=== PATIENT | female | born 1945 | race Caucasian/White ===

== ENCOUNTER 2018-07-14 07:11 | Inpatient (IN) | payer MEDICARE, OTHER ==
[2018-07-14] VITALS (7 sets, daily range): BP systolic 95–138; BP diastolic 55–99
[~2018-07-14] VITALS: Ht 160 cm; Wt 77.6 kg
--- NOTE | 2018-07-14 07:20 | NUR ---
BIBRA 39 FORM HOME, SOB SINCE LAST NIGHT, 2 AKLBUTEROL HHN GIVEN IN ROUTE, 02 @ 70% WHEN PICKED UP BY PARAMEDICS. PATIENT IS VERBALLY RESPONSIVE, AND ABLE TO MAKE NEEDS KNOWN. 02 @80% WHEN CHECKED AND NON-REBREATHER MASK GIVEN, 02 SAT WENT UP TO 92%, DR. JOHN AT BEDSIDE FOR EVAL. RT ON SITE AND PUT PATIENT ON BIPAP, SETTINGS: 15/5, RATE 14, FIO2 40%, 02 SAT 100%. IV ACCESS INITIATED. KEPT COMFORTABLE, WILL CONTINUE TO MONITOR ACCORDINGLY.
[2018-07-14] MEDS ORDERED: FUROSEMIDE 40 MG/4 ML VIAL IV ONE (07:30)
[2018-07-14] MEDS ORDERED: FUROSEMIDE 40 MG/4 ML VIAL ONE (07:30)
[2018-07-14] MEDS ORDERED: ALBUTEROL FS 2.5 MG/3 ML VIAL.NEB NEB ONE (07:30)
--- NOTE | 2018-07-14 07:32 | NUR ---
REPORT GIVEN TO SAGE FOR ALLYSON.
[2018-07-14] MEDS ORDERED: ALBUTEROL FS 2.5 MG/3 ML VIAL.NEB ONE (07:39)
[2018-07-14 08:00] LABS: BASOPHILS # (AUTO) 0.1 /CMM (0.0-0.2); BASOPHILS % (AUTO) 0.8 % (0.0-2.0); EOSINOPHILS % (AUTO) 0.9 % (0.0-6.0); HEMATOCRIT 42 % (33-45); HEMOGLOBIN 13.5 g/dL (11.5-14.8); LYMPHOCYTES # (AUTO) 1.5 /CMM (0.8-4.8); MEAN CORPUSCULAR HGB CONC 32 g/dl (31.0-36.0); MEAN CORPUSCULAR VOLUME 88 fL (82-100); MONOCYTES # (AUTO) 0.4 /CMM (0.1-1.30); MONOCYTES % (AUTO) 4.5 % (2.0-12.0); NEUTROPHILS # (AUTO) 7.4 /CMM (1.8-8.9); NEUTROPHILS % (AUTO) 77.8 % (43.0-81.0); PLATELET COUNT (AUTO) 171 /CMM (150-450); RED BLOOD CELL COUNT(AUTO) 4.81 MIL/uL (4.0-5.2); WHITE BLOOD COUNT (AUTO) 9.5 K/uL (4.3-11.0)
[2018-07-14] MEDS ORDERED: NITROGLYCERIN PACKET 1 GM PACKET TD ONE (08:00)
[2018-07-14] MEDS ORDERED: NITROGLYCERIN PACKET 1 GM PACKET ONE (08:02)
[2018-07-14 08:13] LABS: CALCIUM, SERUM 8.9 mg/dL (8.5-10.1); CARBON DIOXIDE 32 mmol/L (21-32); CHLORIDE 102 mmol/L (98-107); CREATININE 1.2 mg/dL (0.6-1.3); GLUCOSE 102 mg/dL (74-106); POTASSIUM 4.2 mmol/L (3.5-5.1); SODIUM SERUM 141 mmol/L (136-145); UREA NITROGEN, BLOOD 23 mg/dL (7-18)
[2018-07-14 08:27] LABS: ALANINE AMINOTRANSFERASE 16 U/L (12-78); ALBUMIN 3.2 g/dL (3.4-5.0); ALKALINE PHOSPHATASE 130 U/L (46-116); ASPARTATE AMINOTRANSFERASE 16 U/L (15-37); B-TYPE NATRIURETIC PEPTIDE 1083 PG/ML (0-125); BILIRUBIN,DIRECT 0.1 mg/dL (0.0-0.2); BILIRUBIN,TOTAL 0.3 mg/dL (0.2-1.0); TOTAL PROTEIN, SERUM 7.9 g/dL (6.4-8.2)
--- NOTE | 2018-07-14 08:47 | NUR ---
PAGED EPIC FOR ADMISSION.
--- NOTE | 2018-07-14 10:22 | NUR ---
CALLED STEVO HEALY FOR ALLYSON PT GOING TO ICU ROOM 256
[2018-07-14] MEDS ORDERED: MAGNESIUM HYDROXIDE 30 ML UDC PO PRN (10:30)
[2018-07-14] MEDS ORDERED: ZOLPIDEM TARTRATE 5 MG TABLET PO PRN (10:30)
[2018-07-14] MEDS ORDERED: MAG HYDROX/AL HYDROX/SIMETH 30 ML UDC PO PRN (10:30)
[2018-07-14] MEDS ORDERED: Z GUARD REMEDY 2 OZ OINT TP PRN (10:30)
[2018-07-14] MEDS ORDERED: ONDANSETRON HCL/PF 4 MG/2 ML VIAL IVP PRN (10:30)
[2018-07-14] MEDS ORDERED: HYDROCODONE/APAP 5/325MG 1 EACH TABLET PO PRN (10:30)
[2018-07-14] MEDS ORDERED: ACETAMINOPHEN 325 MG TABLET PO PRN (10:30)
--- NOTE | 2018-07-14 11:13 | NUR ---
TRANSPORTED PATEINT VIA ACLS PROTOCOL WITH RN, IN NO APPARENT DISTRESS NOTED. GOING TO ROOM 256.
--- NOTE | 2018-07-14 11:15 | NUR ---
RN NOTES RECEIVED PT FROM ER PT ON FACE MASK 10L WITH SATURATION OF 98%, AWARE 02 TO BE TITRATED FOR SPO2 >90%. PT PLACED ON FACE MASK AT 8LPM TO TITRATE ORDERED. PT AWAKE ALERT AND VERBALLY RESPONSIVE ABLE TO MAKE NEEDS KNOWN. DENIES ANY PAIN OR DISCOMFORT AT THIS TIME. IV ACCESS TO LAC AND RFA PATENT AND INTACT NO REDNESS OR INFILTRATION NOTED. ORIENTED TO ROOM AND UNIT. CALL LIGHT WITHIN EASY REACH WILL CONTINUE TO MONITOR
[2018-07-14] MEDS: ALBUTEROL FS 2.5 MG/0.5 ML VIAL.NEB NEB SCH ×3 (11:42→20:08)
[2018-07-14] MEDS: IPRATROPIUM NEB FS 0.5 MG/2.5 ML AMPUL.NEB NEB SCH ×3 (11:42→20:08)
[2018-07-14] MEDS: FUROSEMIDE 40 MG/4 ML VIAL IV SCH ×2 (12:59→17:31)
[2018-07-14] MEDS: methylPREDNISolone SOD SUCC 40 MG/ML VIAL IV SCH ×2 (12:59→17:31)
[2018-07-14] MEDS: ENOXAPARIN SODIUM 40 MG/0.4 ML DISP.SYRIN SQ SCH (13:27)
--- NOTE | 2018-07-14 13:30 | NUR ---
RN NOTES SEEN AND EVALUATED BY PULMONOLOGY OKAY TO HAVE ABG TOMORROW AM NO FURTHER ORDERS TITRATE O2 VIA NC TO KEEP SPO2>90% WILL CONTINUE TO MONITOR
--- NOTE | 2018-07-14 15:00 | NUR ---
RN NOTES SEEN BY CARDIOLOGY WILL CONTINUE TO MONITOR NO FURTHER ORDERS
--- NOTE | 2018-07-14 20:14 | NUR ---
RN NOTES PT ON NC 3LPM WITH SATURATION OF >90%, MD AWARE 02 TO BE TITRATED FOR SPO2 >90%. . PT AWAKE ALERT AND VERBALLY RESPONSIVE ABLE TO MAKE NEEDS KNOWN. DENIES ANY PAIN OR DISCOMFORT AT THIS TIME. IV ACCESS TO LAC AND RFA PATENT AND INTACT NO REDNESS OR INFILTRATION NOTED. ORIENTED TO ROOM AND UNIT. CALL LIGHT WITHIN EASY REACH ENDORSED TO NEXT SHIFT FOR CONTINUITY OF CARE
--- NOTE | 2018-07-14 20:24 | NUR ---
ICU/RN RECEIVED PT AWAKE ALERT &OX3.MONITOR NSR W/ BBB.DENIES PAIN OR DISCOMFORT.SHORT OF BREATH WITH EXERTION.ON 3LNC W/ SAT OF 95%.OOB W/ RN IN ATTENDANCE TO VOID..
[2018-07-15] VITALS (30 sets, daily range): BP systolic 89–132; BP diastolic 40–77
--- NOTE | 2018-07-15 | NUR ---
ICU/RN ASSISTED OOB TO COMMODE.SOB W/ MILD EXERTION.BACK TO BED W/OUT INCIDENT
[2018-07-15] MEDS: ALBUTEROL FS 2.5 MG/0.5 ML VIAL.NEB NEB SCH ×6 (00:24→20:17)
[2018-07-15] MEDS: IPRATROPIUM NEB FS 0.5 MG/2.5 ML AMPUL.NEB NEB SCH ×6 (00:24→20:17)
[2018-07-15 04:50] LABS: BASOPHILS % (AUTO) 0.1 % (0.0-2.0); HEMATOCRIT 40 % (33-45); HEMOGLOBIN 12.8 g/dL (11.5-14.8); LYMPHOCYTES # (AUTO) 0.5 /CMM (0.8-4.8); MEAN CORPUSCULAR HGB CONC 32 g/dl (31.0-36.0); MEAN CORPUSCULAR VOLUME 86 fL (82-100); MONOCYTES % (AUTO) 0.2 % (2.0-12.0); NEUTROPHILS # (AUTO) 6.1 /CMM (1.8-8.9); NEUTROPHILS % (AUTO) 92.7 % (43.0-81.0); PLATELET COUNT (AUTO) 199 /CMM (150-450); RED BLOOD CELL COUNT(AUTO) 4.65 MIL/uL (4.0-5.2); WHITE BLOOD COUNT (AUTO) 6.6 K/uL (4.3-11.0)
[2018-07-15 05:08] LABS: ALANINE AMINOTRANSFERASE 13 U/L (12-78); ALBUMIN 2.9 g/dL (3.4-5.0); ALKALINE PHOSPHATASE 117 U/L (46-116); ASPARTATE AMINOTRANSFERASE 10 U/L (15-37); BILIRUBIN,TOTAL 0.3 mg/dL (0.2-1.0); CALCIUM, SERUM 8.9 mg/dL (8.5-10.1); CARBON DIOXIDE 37 mmol/L (21-32); CHLORIDE 97 mmol/L (98-107); CREATININE 1.1 mg/dL (0.6-1.3); GLUCOSE 138 mg/dL (74-106); MAGNESIUM 1.9 mg/dL (1.8-2.4); PHOSPHORUS 4.8 mg/dL (2.5-4.9); POTASSIUM 3.7 mmol/L (3.5-5.1); SODIUM SERUM 139 mmol/L (136-145); TOTAL PROTEIN, SERUM 7.5 g/dL (6.4-8.2); UREA NITROGEN, BLOOD 26 mg/dL (7-18)
--- NOTE | 2018-07-15 06:00 | NUR ---
ICU/RN UP TO BEDSIDE COMMODE X3.REFUSED BATH.STILL SOB W/EXERTION.VITAL SIGNS STABLE.MONITOR SHOWS SINUS TACH.DENIES PAIN OR DISCOMFORT.
[2018-07-15 06:22] LABS: IRON, SERUM 26 ug/dl (50-175); TOTAL IRON BINDING CAPACITY 429 ug/dl (250-450)
[2018-07-15 06:33] LABS: CHOLESTEROL 133 mg/dL (<200); HDL CHOLESTEROL 83 mg/dL (40-60); LDL 52 mg/dL (0-99); THYROID STIMULATING HORMONE 0.803 uIU/mL (0.358-3.74); TRIGLYCERIDES 46 mg/dL (30-150)
--- NOTE | 2018-07-15 07:15 | NUR ---
RN INITIAL NOTES: Rec'd pt awake on bed, not in any distress, A/O x 4, denies pain/discomfort at this time. On NC at 3lpm, not SOB while on bed but reported to be SOB upon exertion. On telemonitor, SR. Has IV line access on L 2nd finger G20 & RFA G22 both SL, no s/sx of infection/infiltration noted. Pt uses the BSC, continent B/B. Provided comfort & safety measures. Bed kept low & in locked pos. Call light placed w/in reach. Will continue to monitor & attend pt needs.
--- NOTE | 2018-07-15 07:40 | NUR ---
Pt seen & examined by Dr. Campbell.
[2018-07-15] MEDS: methylPREDNISolone SOD SUCC 40 MG/ML VIAL IV SCH ×3 (08:24→16:51)
[2018-07-15] MEDS: ASPIRIN EC 81 MG TABLET.DR PO SCH (08:24)
[2018-07-15] MEDS: FUROSEMIDE 40 MG/4 ML VIAL IV SCH (08:24)
[2018-07-15] MEDS: ENOXAPARIN SODIUM 40 MG/0.4 ML DISP.SYRIN SQ SCH (08:25)
[2018-07-15 09:09] LABS: ABG BASE EXCESS 9.8 mmol/L; ABG OXYGEN SATURATION 91.1 % (92.0-98.5); ABG PCO2 55.3 mmHg (35.0-45.0); ABG PH 7.432 (7.350-7.450); ABG PO2 60.8 mmHg (75.0-100.0); AaDO2 131.7 mmHg; COHb 1.3 % (0.5-1.5); MetHb 0.3 % (0.0-1.5); O2Hb 89.6 % (94.0-97.0); SITE, ABG Right Radial; VENT MODE, BG Nasal Cannula
--- NOTE | 2018-07-15 09:30 | NUR ---
Pt seen & examined by Dr. Thomas. ABG reviewed by manfred CAMERON to transfer pt to [facility]. CN aware.
--- NOTE | 2018-07-15 11:45 | NUR ---
Dtr gave list of pt medication. Called med recon nurse & informed her about this & stated will come in the unit to check on this.
[2018-07-15] MEDS ORDERED: PREG100C PO (13:20)
[2018-07-15] MEDS ORDERED: IPRA3AMP23 IH (13:20)
[2018-07-15] MEDS ORDERED: DILT60TA35 PO (13:20)
[2018-07-15] MEDS ORDERED: ATOR20TA PO (13:20)
[2018-07-15] MEDS ORDERED: NITR0.4T48 SL (13:20)
[2018-07-15] MEDS ORDERED: ROPI4TAB6 PO (13:20)
[2018-07-15] MEDS ORDERED: FURO-144 PO (13:20)
[2018-07-15] MEDS ORDERED: LAMO100T PO (13:20)
[2018-07-15] MEDS ORDERED: CARV3.122 PO (13:20)
[2018-07-15] MEDS ORDERED: ALBU18HF2 IH (13:20)
[2018-07-15] MEDS ORDERED: FOLI1TAB16 PO (13:20)
[2018-07-15] MEDS ORDERED: ZIPR20CA2 PO (13:20)
[2018-07-15] MEDS ORDERED: CYAN10009 PO (13:20)
[2018-07-15] MEDS ORDERED: APIX2.5T PO (13:20)
--- NOTE | 2018-07-15 14:31 | NUR ---
HR went up to 160's BP 101/67. Pt resting on her bed, denies any chest pain, discomfort. She verbalized she is doing okay. On telemonitor showed ST w/ inverted T wave. Dr. Campbell made aware, awaiting response. Addendum: 07/15/18 at 1452 by MATILDE FAIR RN Addendum: Not Dr. Campbell's pt. Case was referred to Dr. Spence as well as ECG reading which showed Afib w/ RVR. Per , he will see pt.
[2018-07-15] MEDS ORDERED: ENOX40DI SQ (15:15)
[2018-07-15] MEDS ORDERED: MAGN400O6 PO (15:15)
[2018-07-15] MEDS ORDERED: ZOLP5TAB2 PO (15:15)
[2018-07-15] MEDS ORDERED: IPRA0.2S9 NEB (15:15)
[2018-07-15] MEDS ORDERED: ACET325T53 PO (15:15)
[2018-07-15] MEDS ORDERED: ALLA266C2 TP (15:15)
[2018-07-15] MEDS ORDERED: FURO10VI IV (15:15)
[2018-07-15] MEDS ORDERED: MAG30ORA PO (15:15)
[2018-07-15] MEDS ORDERED: ALBU2.5V13 NEB (15:15)
[2018-07-15] MEDS ORDERED: HYDR-3972 PO (15:15)
[2018-07-15] MEDS ORDERED: ONDA4VIA23 IVP (15:15)
[2018-07-15] MEDS ORDERED: ASPI-1152 PO (15:15)
[2018-07-15] MEDS ORDERED: methylPREDNISolone SOD SUCC IV (15:15)
--- NOTE | 2018-07-15 15:15 | NUR ---
Pt seen & examined by Dr. Spence w/ orders made & carried out. Addendum: 07/15/18 at 1835 by MATILDE FAIR RN Addendum: Dr. Spence made aware re: DCP. Per MD if pt will be transferred to [facility], [facility] yu
[2018-07-15] MEDS ORDERED: AMIODARONE 900 MG in IV D5W 482 ML IV PRN (15:30)
[2018-07-15] MEDS ORDERED: IV NS 0.9% 500 ML IV ONE (15:30)
[2018-07-15] MEDS ORDERED: AMIODARONE 150 MG in IV D5W 100 ML IV ONE (15:30)
--- NOTE | 2018-07-15 16:30 | NUR ---
Raiza CORNEJO informed about pt's home meds to review. Pt seen & examined by CLEMENTE Eastman, has an order to transfer pt to [facility] per insurance however pt had episode of Afib RVR, per FOOD AND BEVERAGE ASSISTANT MANAGER pt will stay at [facility] at this time until stable. This was explained to the pt at bedside. FOOD AND BEVERAGE ASSISTANT MANAGER also informed about pt home meds especially her pysch meds if okay to continue, per FOOD AND BEVERAGE ASSISTANT MANAGER she will review pt's med list.
[2018-07-15] MEDS: APIXABAN 2.5 MG TABLET PO SCH (16:51)
--- NOTE | 2018-07-15 18:53 | NUR ---
RN CLOSING NOTES: Pt resting comfortably on her bed, not in any distress. Tolerated NC at 3lpm despite of O2 sat 88%, verbalized she is doing okay. On telemonitor, now ST 103 bpm. IV line access kept patent & intact on LFA G20 SL, R hand G20 w/ Amio drip x 1 mg infusing well & RFA G22 SL, no s/sx of infection/infiltration noted. FC draining to BSB w/ adequate UOP. Pt kept well rested. Needs attended. Bed kept low & in locked pos. Call light placed w/in reach. Will endorse to PM RN for ALLYSON.
--- NOTE | 2018-07-15 19:00 | NUR ---
SHAPE BRICK MOLDER NOTES Received patient awake,alert,not in any distress with O2 via nasal cannula 4L/min.Denies any pain. HR still above 100's ,on Amiodarone drip due to episode of Afib with RVR earlier today ,Amio drip to be decrease to 0.5 mg/min @ 2200. Will closely monitor respiratory status and heart rate/rhythm.comfort care done,needs attended.
--- NOTE | 2018-07-15 22:00 | NUR ---
ANSWERING SERVICE AGENT NOTES AMIODARONE DRIP DECREASE TO 0.5 MG/MIN.PATIENT REMAINS STABLE,SINUS RHYTHM IN THE 90'S,BP STABLE.
[2018-07-16] VITALS (9 sets, daily range): BP systolic 109–148; BP diastolic 59–75
[2018-07-16] MEDS: IPRATROPIUM NEB FS 0.5 MG/2.5 ML AMPUL.NEB NEB SCH ×4 (00:18→11:20)
[2018-07-16] MEDS: ALBUTEROL FS 2.5 MG/0.5 ML VIAL.NEB NEB SCH ×3 (00:18→07:25)
--- NOTE | 2018-07-16 01:30 | NUR ---
THERAPEUTIC ACTIVITIES SERVICES WORKER NOTES PATIENT RESTLESS,UNCOMFORTABLE,HER RLS ACTING UP ,LEGS RESTLESS AND VERY SHAKY,STATES SHE REALLY NEEDS HER MEDICATION FOR RLS(REQUIP),PATIENT TAKING 4 MG Q NIGHT.MESSAGE SENT TO DR. MONET,ANSWERED BACK STATING ELO TO START PATIENT ON IT STARTING NOW.
[2018-07-16] MEDS ORDERED: ropiniROLE 0.5 MG TABLET ONE ×2 (01:39→01:48)
--- NOTE | 2018-07-16 06:00 | NUR ---
DIRECTOR OF ACADEMIC SUPPORT NOTES STABLE,STILL ON AMIODARONE DRIP, STILL SINUS RHYTHM.NOT IN ANT DISTRESS BUT WITH MILD ON AND OFF PANIC ATTACK ,CALMS DOWN WITH PSYCHOLOGICAL SUPPORT. 0700 REPORT GIVEN TO CRISTHIAN HEALY.
[2018-07-16] MEDS: ASPIRIN EC 81 MG TABLET.DR PO SCH (08:41)
[2018-07-16] MEDS: APIXABAN 2.5 MG TABLET PO SCH (08:41)
[2018-07-16] MEDS: methylPREDNISolone SOD SUCC 40 MG/ML VIAL IV SCH (08:41)
[2018-07-16 10:08] LABS: BASOPHILS % (AUTO) 0.1 % (0.0-2.0); HEMATOCRIT 40 % (33-45); HEMOGLOBIN 12.9 g/dL (11.5-14.8); LYMPHOCYTES % (AUTO) 7.8 % (20.0-44.0); MEAN CORPUSCULAR HGB CONC 32 g/dl (31.0-36.0); MEAN CORPUSCULAR VOLUME 85 fL (82-100); MONOCYTES # (AUTO) 0.5 /CMM (0.1-1.30); MONOCYTES % (AUTO) 4.1 % (2.0-12.0); NEUTROPHILS # (AUTO) 10.8 /CMM (1.8-8.9); PLATELET COUNT (AUTO) 229 /CMM (150-450); WHITE BLOOD COUNT (AUTO) 12.2 K/uL (4.3-11.0)
[2018-07-16 10:21] LABS: CARBON DIOXIDE 34 mmol/L (21-32); CHLORIDE 97 mmol/L (98-107); CREATININE 1.2 mg/dL (0.6-1.3); GLUCOSE 150 mg/dL (74-106); MAGNESIUM 1.9 mg/dL (1.8-2.4); PHOSPHORUS 3.8 mg/dL (2.5-4.9); POTASSIUM 3.3 mmol/L (3.5-5.1); SODIUM SERUM 139 mmol/L (136-145); UREA NITROGEN, BLOOD 34 mg/dL (7-18)
--- NOTE | 2018-07-16 10:40 | NUR ---
PB RN NOTES PT TRANSFERRED FROM ICU TO PB FLOOR ROOM 119-2. BELONGINGS TRANSFERRED WITH PT. PT WILL BE TRANSFERRING TO [facility] TODAY. WILL FOLLOW UP.
--- NOTE | 2018-07-16 10:40 | NUR ---
transferred to [facility] via bed/acls transport protocol; bedside handoof don with Joseluis RN; amiodarone drip endorsed as well
[2018-07-16] MEDS ORDERED: ALBUTEROL FS 2.5 MG/0.5 ML VIAL.NEB NEB SCH (13:30)
--- NOTE | 2018-07-16 15:13 | NUR ---
PB CLERICAL METHODS ANALYST NOTES PT TRANSFERRED TO [facility] PER INSURANCE REQUEST BY AMBULANCE CREW. PT LEAVING WITH REYES/L AND R IV SITES PATENT. ALL NEEDS ATTENDED TO.
[2018-07-16] MEDS ORDERED: AMIODARONE HCL 200 MG TABLET PO SCH (21:00)
[2018-07-16] MEDS ORDERED: ropiniROLE 0.5 MG TABLET PO SCH (22:00)
[2018-07-17] MEDS ORDERED: methylPREDNISolone SOD SUCC 40 MG/ML VIAL IV SCH (09:00)
== END 2018-07-16 15:30 | disposition short-term general hospital (02) | DRG 291 ==
LOC: ER 07:13 → ICU 10:12 → TELE1 07-16 10:37 → TELE-TD 07-16 12:14
PROVIDERS: ADMIT Internal Medicine; ATTEND Registered Nurse
DX: I11.0 Hypertensive heart disease with heart failure (principal); N17.0 Acute kidney failure with tubular necrosis; G93.41 Metabolic encephalopathy; J96.01 Acute respiratory failure with hypoxia; J96.02 Acute respiratory failure with hypercapnia; J44.1 Chronic obstructive pulmonary disease with (acute) exacerbation; E66.2 Morbid (severe) obesity with alveolar hypoventilation; I50.33 Acute on chronic diastolic (congestive) heart failure; I48.0 Paroxysmal atrial fibrillation; Z90.3 Acquired absence of stomach [part of]; Z95.1 Presence of aortocoronary bypass graft; Z96.651 Presence of right artificial knee joint; Z98.61 Coronary angioplasty status; I25.10 Atherosclerotic heart disease of native coronary artery without angina pectoris; I45.10 Unspecified right bundle-branch block; Z87.891 Personal history of nicotine dependence; F31.9 Bipolar disorder, unspecified; Z68.30 Body mass index [BMI] 30.0-30.9, adult
CPT/HCPCS: 36415; 36600; 71045-TC; 80048-TC; 80053-TC; 80061-TC; 80076-TC; 82803-TC; 83540-TC; 83605-TC; 83735-TC; 83880; 84100-TC; 84443-TC; 84484-TC; 85025-TC; 85730-TC; 87040-TC; 87081-TC; 93307-TC; 93970-TC; 94799-TC; G0378; J0282; J1650; J1940; J2920; J7040; J7060

== ENCOUNTER 2018-07-29 03:09 | Inpatient (IN) | payer MEDICARE, OTHER ==
[~2018-07-29] VITALS: Ht 162.6 cm; Wt 81.6 kg
[~2018-07-29 03:09] MED LIST: ACET325T53 PO; ALBU2.5V13 NEB; ALLA266C2 TP; ASPI-1152 PO; ENOX40DI SQ; FURO10VI IV; HYDR-3972 PO; IPRA0.2S9 NEB; MAG30ORA PO; MAGN400O6 PO; ONDA4VIA23 IVP; ZOLP5TAB2 PO; methylPREDNISolone SOD SUCC IV
--- NOTE | 2018-07-29 03:20 | NUR ---
[id number] FROM HOME, PER EMS ROOMATE FOUND PT "ACTING CHILD LIKE". A/OX 3 AND ABLE TO MAKE NEEDS KNOWN. PT PLACED ON MONITOR. VSS WNL. NO HEAD TRAUMA NOTED. BS 138. ALL SAFETY MEASURES IN PLACE. AWAITING MD LUTZ.
[2018-07-29] MEDS ORDERED: IV NS 0.9% 1,000 ML BAG IV ONE (03:30)
[2018-07-29] MEDS ORDERED: HALOPERIDOL LACTATE INJ 5 MG/ML VIAL IV ONE (03:30)
[2018-07-29] MEDS ORDERED: HALOPERIDOL LACTATE INJ 5 MG/ML VIAL ONE (04:10)
[2018-07-29 04:21] LABS: BASOPHILS % (AUTO) 0.4 % (0.0-2.0); EOSINOPHILS % (AUTO) 1.7 % (0.0-6.0); HEMATOCRIT 40 % (33-45); HEMOGLOBIN 12.8 g/dL (11.5-14.8); LYMPHOCYTES # (AUTO) 1.3 /CMM (0.8-4.8); LYMPHOCYTES % (AUTO) 18.4 % (20.0-44.0); MEAN CORPUSCULAR HGB CONC 32 g/dl (31.0-36.0); MEAN CORPUSCULAR VOLUME 87 fL (82-100); MONOCYTES # (AUTO) 0.4 /CMM (0.1-1.30); MONOCYTES % (AUTO) 6.5 % (2.0-12.0); PLATELET COUNT (AUTO) 151 /CMM (150-450); RED BLOOD CELL COUNT(AUTO) 4.53 MIL/uL (4.0-5.2); WHITE BLOOD COUNT (AUTO) 6.8 K/uL (4.3-11.0)
[2018-07-29 04:41] LABS: ACETAMINOPHEN 0 ug/ml (10-30); ALANINE AMINOTRANSFERASE 27 U/L (12-78); ALBUMIN 3.1 g/dL (3.4-5.0); ALCOHOL, BLOOD < 3 mg/dL (0-0); ALKALINE PHOSPHATASE 89 U/L (46-116); ASPARTATE AMINOTRANSFERASE 32 U/L (15-37); BILIRUBIN,DIRECT 0.1 mg/dL (0.0-0.2); BILIRUBIN,TOTAL 0.4 mg/dL (0.2-1.0); CALCIUM, SERUM 8.7 mg/dL (8.5-10.1); CARBON DIOXIDE 30 mmol/L (21-32); CHLORIDE 103 mmol/L (98-107); CREATININE 1.4 mg/dL (0.6-1.3); GLUCOSE 105 mg/dL (74-106); POTASSIUM 3.2 mmol/L (3.5-5.1); SALICYLATE 1.2 mg/dL (2.8-20.0); SODIUM SERUM 143 mmol/L (136-145); TOTAL PROTEIN, SERUM 6.8 g/dL (6.4-8.2); UREA NITROGEN, BLOOD 23 mg/dL (7-18)
[2018-07-29 05:13] LABS: THYROID STIMULATING HORMONE 1.311 uIU/mL (0.358-3.74)
[2018-07-29] MEDS: POTASSIUM CHLORIDE 20 MEQ TAB.PRT.SR PO ONE ×2 (05:52→06:29)
--- NOTE | 2018-07-29 06:20 | NUR ---
REPORT GIVEN TO RASHEL
[2018-07-29] MEDS ORDERED: POTASSIUM CHLORIDE 20 MEQ TAB.PRT.SR PO ONE (06:22)
--- NOTE | 2018-07-29 06:30 | NUR ---
GPS RN NOTES RECEIVED PATIENT FROM [facility]/ ER. ,VITAL SIGNS TAKEN AND RECORDED , NO ACUTE DISTRESS NOTED , PT. BEHAVIOR AGGRESSIVE WITH STAFF NOTED, ENDORSE TO ON COMING NURSE FOR COMPLETION OF ADMISSION AND FOR CONTINUITY OF CARE.
--- NOTE | 2018-07-29 06:46 | NUR ---
TRANSFERRED PT VIA WHEELCHAIR TO ROOM 214.
[2018-07-29 06:48] VITALS: BP 127/79
[2018-07-29] MEDS ORDERED: TEMAZEPAM 7.5 MG CAPSULE PO PRN (07:00)
[2018-07-29] MEDS ORDERED: LORAZEPAM 0.5 MG TABLET PO PRN (07:00)
[2018-07-29] MEDS ORDERED: MAG HYDROX/AL HYDROX/SIMETH 30 ML UDC PO PRN (07:00)
[2018-07-29] MEDS ORDERED: ACETAMINOPHEN 325 MG TABLET PO PRN (07:00)
[2018-07-29] MEDS ORDERED: MAGNESIUM HYDROXIDE 30 ML UDC PO PRN (07:00)
[2018-07-29 08:00] VITALS: BP 132/74
[2018-07-29] MEDS ORDERED: ZOLP5TAB2 PO (08:26)
[2018-07-29] MEDS ORDERED: IPRA3AMP23 IH (08:26)
[2018-07-29] MEDS ORDERED: ALLA266C2 TP (08:26)
[2018-07-29] MEDS ORDERED: METO25TA20 PO (08:26)
[2018-07-29] MEDS ORDERED: ACET-868 PO (08:29)
[2018-07-29] MEDS ORDERED: HYDR-4384 PO (08:29)
[2018-07-29] MEDS ORDERED: MAGN400O6 PO (08:29)
[2018-07-29] MEDS ORDERED: ASPI-1152 PO (08:29)
[2018-07-29] MEDS ORDERED: MAG30ORA PO (08:29)
[2018-07-29 08:55] LABS: CREATININE 1.1 mg/dL (0.6-1.3)
--- NOTE | 2018-07-29 10:00 | NUR ---
ADMISSION NOTE: PATIENT RECEIVED FROM CLINICAL COORDINATOR, ASLEEP BUT WAKES WITH STIMULI. PATIENT IS NOT COOPERATING BECAUSE SHE IS VERY TIRED. PATIENT RECEIVED HALDOL IN THE ER SO PATIENT IS VERY SLEEPY. PATIENT ADMITTED ON 5150 FOR GD. BROUGHT INTO THE ER BY ROOMMATE EVAN SHE WAS RAMBLING CONFUSED AND ACTING BIZARRE. PATIENTS BELONGINGS WERE DONE. PSYCHIATRIST NOTIFIED AND ORDER PUT IN. MORTGAGE PROCESSOR MADE AWARE AND MED RECON. SKIN ASSESSMENT AND PICTURES WERE REFUSED BY THE PATIENT. UNIT POLICIES AND PROCEDURES WILL BE EXPLAINED TO PATIENT WHEN SHE WAKES UP.
--- NOTE | 2018-07-29 11:00 | NUR ---
HERSONCO:EKG WAS ORDERED BY DR RAMIREZ.
--- NOTE | 2018-07-29 11:25 | NUR ---
SW called the pt's daughter, Crystal ([phone]), and received a busy dial tone which prevented the SW from leaving a message on her voicemail.
[2018-07-29] MEDS ORDERED: K PHOS NEUTRAL 250 MG TABLET PO ONE (13:00)
--- NOTE | 2018-07-29 13:01 | NUR ---
RN-CO: DR JAMES MARTÍNEZ SEEN AND EXAMINED THE PATIENT. REMINDED DR RAMIREZ TO RECONCILE HOME MEDS.
--- NOTE | 2018-07-29 14:10 | NUR ---
UR Note: Venus ([phone]), case manager specialist from [facility], called the SW and stated that she would like any available notes to be faxed to [phone]. SW stated that the pt is on her first day and at this current time the psychiatrist has not arrived and there are no notes present in the system. VICENTE asked if she could fax the clinical tomorrow morning and the case manager specialist stated that was fine.
[2018-07-29] MEDS ORDERED: Z GUARD REMEDY 2 OZ OINT TP PRN (15:00)
[2018-07-29] MEDS ORDERED: HYDROCODONE/APAP 5/325MG 1 EACH TABLET PO PRN (15:00)
--- NOTE | 2018-07-29 15:00 | NUR ---
Initial Discharge Plan: Pt currently resides with her roommates at a home located at [address] [place] [address]; ([phone]). Per pt, she would like to return home. SW will work with the pt and the MD regarding appropriate discharge planning. SW will form a safe and proper discharge.
[2018-07-29 16:01] VITALS: BP 128/68
[2018-07-29] MEDS ORDERED: METOPROLOL TARTRATE 25 MG TABLET PO SCH (17:00)
[2018-07-29] MEDS ORDERED: OLANZAPINE 5 MG/TAB.RAPDIS PO SCH (17:00)
[2018-07-29] MEDS: OLANZAPINE 5 MG/TAB.RAPDIS PO SCH ×2 (17:00→17:09)
--- NOTE | 2018-07-29 17:15 | NUR ---
RN NOTE: MED CONSENT TURNED IN LATE AFTER MED WAS DUE. PER NIKO IN THE PHARMACY, GIVE THE DOSE THAT WAS DUE AT 1530 OF OLANZAPINE AND THEN HOLD THE DOSE DUE AT 1700/
--- NOTE | 2018-07-29 19:11 | NUR ---
RN NOTE: PATIENT IS UNCOOPERATIVE WITH PICTURES AND URINE SAMPLE. ENDORSED TO ANALYTICAL RESEARCH PROGRAM MANAGER TO TRY TONIGHT.
--- NOTE | 2018-07-29 19:36 | NUR ---
GPS RN NOTES: PT.NOTED VERY ANXIOUS RESTLESS ,AGGRESSIVE, UNCOOPERTIVE ,YELLING ,NOT FOLLOWING ANY REDIRECTIONS ATIVAN 0.5 MG PO PRN GIVEN,WILL CONTINUE TO MONITOR.
--- NOTE | 2018-07-29 20:05 | NUR ---
GPS RN NOTES: ASSESS PATIENT TOGETHER WITH ANOTHER NURSE AND CHARGE NURSE , BILATERAL LOWER EXTRIMITES EDEMA ,REDNESS, WARM TO TOUCH . PT. C/O PAIN WHEN BEING TOUCH,AND NOTIFIED HYDROGEN BRAZE FURNACE OPERATOR DEBBIE BOOGIE ON MY FINDING , PER HER STATES I WILL COME TO SEE THE PATIENT ,AFTER SEEING THE PATIENT I WILL GIVE ORDER, WILL CONTINUE TO MONITOR.
[2018-07-29 20:15] VITALS: BP 108/53
[2018-07-29 20:58] LABS: APPEARANCE,URINE SL CLOUDY (CLEAR); BILIRUBIN,URINE NEGATIVE (NEGATIVE); BLOOD, URINE TRACE Ery/uL (NEGATIVE); COLOR,URINE YELLOW (YELLOW); KETONES,URINE NEGATIVE (NEGATIVE); LEUKOCYTE ESTERASE ,URINE 1+ (NEGATIVE); NITRITE, URINE NEGATIVE (NEGATIVE); PH,URINE 6.5 (5.0-8.0); PROTEIN,URINE NEGATIVE (NEGATIVE); UGLUCOSE NEGATIVE (NEGATIVE); UROBILINOGEN,URINE 0.2 EU/dL (0.2)
[2018-07-29 21:13] LABS: BACTERIA,URINE Few /HPF (None Seen); RBC,URINE 0-2 /HPF (0-2); SQUAMOUS EPITHELIAL CELL,UR Few /HPF (None Seen)
--- NOTE | 2018-07-29 21:45 | NUR ---
GPS RN NOTES: AT PT. TOLD NURSE THAT SHE PUT ON OXYGEN AT NIGHT WHEN SLEEPING NURSE ASSESSED HER O2 SAT GOT THE READING 89% -91% ON ROOM AIR ,PATIENT THEN STARTED O2 , RECHECKED READING 95% AND CHUYITA EDUCATION LIAISON CAME TO THE UNIT TO PHYSICAL ASSESSED THE PT. IN THE ROOM , NURSE ASSIGNED WENT WITH HER. SHE VEBALLY GAVE OREDRS FOR PT. TO BE DISCHARGED AND SENT TO MED SURG FLOOR , FOR FURTHER WORK UP. PT. MADE READY BELONGINGS MADE READY ,WILL GIVE REPORTS TO NURSE ASSIGNED.
[2018-07-29] MEDS ORDERED: LamoTRIgine 25 MG TABLET PO SCH (22:00)
[2018-07-29 23:25] VITALS: BP 123/78
--- NOTE | 2018-07-29 23:30 | NUR ---
GPS RN NOTES: REPORT GIVEN TO SHERRELL PT. DISCHARGE TO MED SURG ROOM # 325 IN STABLE CONDITION, NO ACUTE DISTRESS NOTED , PT. TRANSFER VIA WHEELCHAIR ACCOMPAINED WITH STAFF MEMBER, WILL ENDORSE TO MED SURG NURSER FOR CONTINUITY WITH CARE ,
--- NOTE | 2018-07-30 08:49 | NUR ---
SW called the pt's daughter, Crystal ([phone]), and received a busy dial tone which prevented the SW from leaving a message on her voicemail.
--- NOTE | 2018-07-30 08:53 | NUR ---
UR Note: VICENTE faxed a clinical to Venus ([phone]), top case assembler from [facility], to the fax number: [phone]. VICENTE stated on the cover sheet that the pt was discharged to the medical floor the same day of her admission.
[2018-07-30] MEDS ORDERED: ASPIRIN EC 81 MG TABLET.DR PO SCH (09:00)
--- NOTE | 2018-07-30 10:54 | NUR ---
Discharge Note: Pt was discharged from [facility] and was admitted to the Medical Floor of [facility] per Dr. Lockhart.
[2018-07-30] MEDS ORDERED: ATOR20TA PO (12:07)
[2018-07-30] MEDS ORDERED: DILT180C66 PO (12:07)
[2018-07-30] MEDS ORDERED: APIX5TAB PO (12:07)
[2018-07-30] MEDS ORDERED: ROPI1TAB2 PO (12:07)
[2018-07-30] MEDS ORDERED: CARV3.122 PO (12:07)
[2018-07-30] MEDS ORDERED: FURO-144 PO (12:07)
[2018-07-30] MEDS ORDERED: PREG100C PO (12:07)
[2018-07-30] MEDS ORDERED: NITR0.4T48 SL (12:07)
--- NOTE | 2018-07-30 15:00 | NUR ---
VICENTE called the pt's daughter, Erin ([phone]), when the accurate number was provided to the SW. She informed the pt's daughter that she had attempted to call a few times yesterday but had the wrong number. VICENTE informed her that the pt is now on the medical floor but if she returns to the geropsych unit, the SW will call her back to discuss discharge planning.
[2018-07-30] MEDS ORDERED: OLANZAPINE 5 MG/TAB.RAPDIS PO SCH (15:30)
[2018-07-30] MEDS ORDERED: LamoTRIgine 25 MG TABLET PO SCH (22:00)
== END 2018-07-29 23:24 | disposition short-term general hospital (02) | DRG 885 ==
LOC: ER 03:10 → GPS 05:10
PROVIDERS: ADMIT Psychiatry & Neurology Psychiatry; ATTEND Psychiatry & Neurology Psychiatry
DX: F31.2 Bipolar disorder, current episode manic severe with psychotic features (principal); N18.9 Chronic kidney disease, unspecified; N17.9 Acute kidney failure, unspecified; I13.0 Hypertensive heart and chronic kidney disease with heart failure and stage 1 through stage 4 chronic kidney disease, or unspecified chronic kidney disease; I50.32 Chronic diastolic (congestive) heart failure; F23 Brief psychotic disorder; J44.9 Chronic obstructive pulmonary disease, unspecified; E87.6 Hypokalemia; I25.10 Atherosclerotic heart disease of native coronary artery without angina pectoris; Z95.1 Presence of aortocoronary bypass graft; I25.2 Old myocardial infarction; E11.22 Type 2 diabetes mellitus with diabetic chronic kidney disease; Z79.84 Long term (current) use of oral hypoglycemic drugs
CPT/HCPCS: 36415; 80048-TC; 80076-TC; 80305; 81000-TC; 82565-TC; 84443-TC; 84484-TC; 85025-TC; 87081-TC; 87086-TC; G0480; J1630; J7030

== ENCOUNTER 2018-07-29 23:49 | Inpatient (IN) | payer MEDICARE, OTHER ==
[~2018-07-29] VITALS: Ht 160 cm; Wt 76.2 kg
[2018-07-29 23:30] VITALS: BP 109/66
--- NOTE | 2018-07-29 23:30 | NUR ---
RN MS ADMITTING/OPENING NOTES RECEIVED PATIENT FROM GPS, PATIENT IS NOW MS PATIENT, AWAKE ALERT AND ORIENTED X 1-2 NOTED WITH PERIODS OF FORGETFULNESS, ON 2 L VIA NC, NO SOB PRESENT, ON 5150 HOLD FOR GD,DTS,DTO, WITH SITTER AT BEDSIDE, ORIENTED TO STAFF AND CALL LIGHT. BELONGINGS LIST DONE, BODY ASSESSMENT DONE, PICTURES TAKEN PLACED IN CHART NOTED WITH BLE EDEMA AND REDNESS ADMITTED FOR CELLULITIS, MD AWARE OF ADMISSION, MRSA SWAB DONE, WILL CARRY OUT ORDERS PER MD. ALL NEEDS ATTENDED AT THIS TIME PATIENT REMAINS COMFORTABLE AT THIS TIME.
[~2018-07-29 23:49] MED LIST changes: +ACET-868 PO; +HYDR-4384 PO; +IPRA3AMP23 IH; +METO25TA20 PO
[2018-07-30] MEDS ORDERED: ONDANSETRON HCL/PF 4 MG/2 ML VIAL IVP PRN
[2018-07-30] MEDS ORDERED: VANCOMYCIN 1 GM in IV D5W 250ml IV ONE (02:00)
[2018-07-30] MEDS ORDERED: VANCOMYCIN 1 GM VIAL ONE (03:44)
[2018-07-30] MEDS: ACETAMINOPHEN 325 MG TABLET PO PRN ×2 (05:40→17:01)
--- NOTE | 2018-07-30 05:44 | NUR ---
RN MS NOTES PATIENT COMPLAINT OF PAIN TO LOWER LEGS STATES" ALOT OF PAIN" REQUESTING FOR TYLENOL PRN GIVEN ORDERED
--- NOTE | 2018-07-30 06:27 | NUR ---
RN MS CLOSING NOTES PATIENT IN BED AWAKE ALERT AND ORIENTED X 1-2 NOTED WITH PERIODS OF FORGETFULNESS, ON 2 L VIA NC, NO SOB PRESENT, ON 5150 HOLD FOR GD,DTS,DTO, WITH SITTER AT BEDSIDE, CALL LIGHT KEPT WITHIN REACH, ALL NEEDS ATTENDED AT THIS TIME PATIENT REMAINS COMFORTABLE, FLUIDS AND TOILETING OFFERED, NO FURTHER CHANGED THROUGHOUT NIGHT PATIENT SLEPT 4 HOURS. WILL CONTINUE TO MONITOR AND ENDORSE TO NEXT SHIFT.
[2018-07-30 06:54] LABS: BASOPHILS % (AUTO) 0.5 % (0.0-2.0); EOSINOPHILS % (AUTO) 1.8 % (0.0-6.0); HEMATOCRIT 36 % (33-45); HEMOGLOBIN 11.5 g/dL (11.5-14.8); LYMPHOCYTES # (AUTO) 1.8 /CMM (0.8-4.8); LYMPHOCYTES % (AUTO) 26.9 % (20.0-44.0); MEAN CORPUSCULAR HGB CONC 32 g/dl (31.0-36.0); MEAN CORPUSCULAR VOLUME 87 fL (82-100); MONOCYTES # (AUTO) 0.5 /CMM (0.1-1.30); MONOCYTES % (AUTO) 7.2 % (2.0-12.0); NEUTROPHILS # (AUTO) 4.2 /CMM (1.8-8.9); NEUTROPHILS % (AUTO) 63.6 % (43.0-81.0); PLATELET COUNT (AUTO) 137 /CMM (150-450); RED BLOOD CELL COUNT(AUTO) 4.09 MIL/uL (4.0-5.2); WHITE BLOOD COUNT (AUTO) 6.6 K/uL (4.3-11.0)
[2018-07-30 07:43] LABS: CALCIUM, SERUM 8.6 mg/dL (8.5-10.1); CARBON DIOXIDE 32 mmol/L (21-32); CHLORIDE 106 mmol/L (98-107); CREATININE 1.3 mg/dL (0.6-1.3); GLUCOSE 90 mg/dL (74-106); MAGNESIUM 1.8 mg/dL (1.8-2.4); POTASSIUM 3.6 mmol/L (3.5-5.1); SODIUM SERUM 143 mmol/L (136-145); UREA NITROGEN, BLOOD 20 mg/dL (7-18)
--- NOTE | 2018-07-30 07:53 | NUR ---
MS RN Opening Note Patient awake, sitting in chair. No acute distress, SOB or complaints of chest pain. Alert and oriented x 1-2, able to verbalize needs. Respirations even and unlabored on 2 L oxygen via nasal cannula. Peripheral IV access to the left forearm 20 gauge, intact, patent and saline locked. Skin warm and dry to touch. Fall and Safety precautions in place: bed in lowest and locked position, bed alarm on, side rails up x2, call light and personal possessions within reach. Oriented to safety measures and use of call light, verbalized understanding and demonstrated use. Previous GPS patient, [address] 1:1 sitter at bedside for safety. Safety checks every 15 minutes, patient denies SI/HI. Will continue to monitor and intervene as needed. Addendum: 07/30/18 at 1843 by SOLO IZAGUIRRE RN CORRECTION: Peripheral IV access to the left wrist 22 gauge, intact, patent and saline locked.
[2018-07-30 08:00] VITALS: BP 118/79
[2018-07-30] MEDS: HYDROCODONE/APAP 5/325MG 1 EACH TABLET PO PRN (08:23)
[2018-07-30] MEDS ORDERED: FEE PK DOSING 1 MIN EA MC ONE (08:53)
--- NOTE | 2018-07-30 08:57 | NUR ---
WOUND CARE CONSULT: PT PRESENTS WITH MULTIPLE SURGICAL SCARS, BRUISES AND REDNESS TO LOWER LEGS, PRESENT ON ADMISSION. PT ABLE TO STAND MOVE ABOUT WITH ASSISTANCE. WILL SEE PRN. Addendum: 07/30/18 at 0858 by MAGDA DELACRUZ WNDNU Amended: Links added.
[2018-07-30] MEDS ORDERED: ENOXAPARIN SODIUM 40 MG/0.4 ML DISP.SYRIN SQ SCH (09:00)
[2018-07-30] MEDS ORDERED: Z GUARD REMEDY 2 OZ OINT TP PRN (09:00)
[2018-07-30] MEDS ORDERED: DILT180C66 PO (12:07)
[2018-07-30] MEDS ORDERED: NITR0.4T48 SL (12:07)
[2018-07-30] MEDS ORDERED: FURO-144 PO (12:07)
[2018-07-30] MEDS ORDERED: APIX5TAB PO (12:07)
[2018-07-30] MEDS ORDERED: ATOR20TA PO (12:07)
[2018-07-30] MEDS ORDERED: ROPI1TAB2 PO (12:07)
[2018-07-30] MEDS ORDERED: PREG100C PO (12:07)
[2018-07-30] MEDS ORDERED: CARV3.122 PO (12:07)
[2018-07-30] MEDS ORDERED: ZOLPIDEM TARTRATE 5 MG TABLET PO PRN (12:30)
[2018-07-30] MEDS ORDERED: MAGNESIUM HYDROXIDE 30 ML UDC PO PRN (12:30)
[2018-07-30] MEDS ORDERED: MAG HYDROX/AL HYDROX/SIMETH 30 ML UDC PO PRN (12:30)
--- NOTE | 2018-07-30 13:00 | NUR ---
Home medication sheet received from daughter; brought up from GPS. Will enter and perform medication reconciliation with Dr. Driscoll (now assuming care for patient).
[2018-07-30] MEDS: PREGABALIN 100 MG CAPSULE PO SCH (16:10)
[2018-07-30] MEDS: CARVEDILOL 3.125 MG TABLET PO SCH (16:11)
[2018-07-30 16:12] VITALS: BP 155/81
[2018-07-30] MEDS: DILTIAZEM HCL CD 120 MG PO SCH (16:12)
--- NOTE | 2018-07-30 18:41 | NUR ---
MS RN Closing Note Patient awake, sitting in chair. No acute distress, SOB or complaints of chest pain. Alert and oriented x 1-2, able to verbalize needs. Respirations even and unlabored on 2 L oxygen via nasal cannula as needed. Peripheral IV access to the left wrist 22 gauge, intact, patent and saline locked. Skin warm and dry to touch. Fall and Safety precautions in place: bed in lowest and locked position, bed alarm on, side rails up x2, call light and personal possessions within reach. Oriented to safety measures and use of call light, verbalized understanding and demonstrated use. Previous GPS patient, [address] 1:1 sitter at bedside for safety. Safety checks every 15 minutes, patient denies SI/HI. Manic behavior this shift, no sleep. Will endorse to lieutenant shift supervisor RN for continuity of care.
--- NOTE | 2018-07-30 19:30 | NUR ---
MS RN NOTES RECEIVED ON BED A/O X1-2,TRANSFER FROM GPS DUE TO CELLULITIS OF BILATERAL LOWER EXTREMITIES.NOTED SWELLING AND REDNESS,ELEVATED ON PILLOWS.WITH SITTER,ON 5150 HOLD,GRAVELY DISABLED.SALINE LOCK LEFT WRIST INTACT AND PATENT.ABLE TO USE BEDSIDE COMMODE WITH STANDBY ASSIST.FALL PRECAUTION OBSERVED,CALL LIGHT IN REACH,NEEDS ANTICIPATED.
[2018-07-30 20:00] VITALS: BP 116/71
[2018-07-30 20:31] VITALS: BP 116/71
[2018-07-30] MEDS: OLANZAPINE 5 MG TABLET PO SCH (21:00)
[2018-07-30] MEDS ORDERED: VANCOMYCIN 1 GM in IV D5W 250 ML IV SCH (21:00)
[2018-07-30] MEDS: ATORVASTATIN 10 MG TABLET PO SCH (22:01)
[2018-07-30] MEDS: LamoTRIgine 25 MG TABLET PO SCH (22:01)
[2018-07-30] MEDS: ropiniROLE 0.5 MG TABLET PO SCH (22:01)
--- NOTE | 2018-07-31 00:45 | NUR ---
MS RN NOTES AWAKE,RESTLESS,ASKING FOR NITROGLYCERINE SUBLINGUAL.CLAIMED SHE'S HAVING CHEST PAIN.BP 123/70
[2018-07-31] MEDS: NITROGLYCERIN 0.4 MG/TAB BOTTLE SL PRN (00:56)
--- NOTE | 2018-07-31 00:56 | NUR ---
MS RN NOTES NITROGLYCERINE 0.4MG SL GIVEN Q 5 MINUTES APART,BP 128/79 LATEST.
[2018-07-31] MEDS: HYDROCODONE/APAP 5/325MG 1 EACH TABLET PO PRN ×2 (01:09→13:01)
--- NOTE | 2018-07-31 01:09 | NUR ---
MS RN NOTES PAIN MANAGEMENT C/O GENERALIZED PAIN 7/10 ON PAIN SCALE,MEDICATED WITH NORCO 5/325MG,1 TAB PO PER PATIENT REQUEST.
--- NOTE | 2018-07-31 01:15 | NUR ---
MS RN NOTES OFFERED SLEEPING PILL BUT REFUSED.
--- NOTE | 2018-07-31 03:30 | NUR ---
MS RN NOTES AWAKE,WALKING BACK AND FORTH IN THE ROOM,APPEARS ANXIOUS ASKING FOR BREATHING TREATMENT,RT AT WAS PAGE AND CA,E,BREATHING TREATMENT ADMINISTERED ORDERED.CLAIMED SHE FEELS BETTER AND FALLING ASLEEP.
[2018-07-31] MEDS: ALBUTEROL FS 2.5 MG/0.5 ML VIAL.NEB NEB PRN (04:23)
[2018-07-31] MEDS: IPRATROPIUM NEB FS 0.5 MG/2.5 ML AMPUL.NEB NEB PRN (04:23)
--- NOTE | 2018-07-31 06:47 | NUR ---
MS RN NOTES ON BED CALM AND QUIET AT THE MOMENT,SITTER AT BEDSIDE.O2 IN USED ON AND OFF,CALL LIGHT IN REACH,NEEDS ATTENDED.WILL ENDORSE TO DAY NURSE FOR ALLYSON.
[2018-07-31 07:10] LABS: CALCIUM, SERUM 8.9 mg/dL (8.5-10.1); CARBON DIOXIDE 33 mmol/L (21-32); CHLORIDE 107 mmol/L (98-107); GLUCOSE 87 mg/dL (74-106); POTASSIUM 3.8 mmol/L (3.5-5.1); SODIUM SERUM 145 mmol/L (136-145); UREA NITROGEN, BLOOD 15 mg/dL (7-18)
--- NOTE | 2018-07-31 07:22 | NUR ---
Nurses Notes: Received report from Jessica Glass RN. Received patient with sitter, on 5150 hold. Having no hallucinations, no suicidal ideation. patient asking for assistance onto commode.
[2018-07-31 08:00] VITALS: BP 127/71
[2018-07-31] MEDS: ASPIRIN EC 81 MG TABLET.DR PO SCH (09:33)
[2018-07-31] MEDS: FUROSEMIDE 40 MG TABLET PO SCH (09:33)
[2018-07-31] MEDS: OLANZAPINE 5 MG TABLET PO SCH ×2 (09:33→21:13)
[2018-07-31] MEDS: PREGABALIN 100 MG CAPSULE PO SCH ×2 (09:33→17:54)
[2018-07-31] MEDS: DILTIAZEM HCL CD 120 MG PO SCH (09:33)
[2018-07-31] MEDS: CARVEDILOL 3.125 MG TABLET PO SCH ×2 (09:33→17:54)
[2018-07-31] MEDS: APIXABAN 5 MG TABLET PO SCH ×2 (11:16→18:14)
[2018-07-31] MEDS: CEPHALEXIN MONOHYDRATE 250 MG CAPSULE PO SCH ×2 (13:01→21:13)
--- NOTE | 2018-07-31 14:30 | NUR ---
Nurses Note: patient to be discharge to [facility], Discharge photos taken of abrasions, redness on elbows, and discoloration on lower legs, sacral scar, which is intact. Legs are less swollened when patient stays in bed. Only out of bed when using commode.
[2018-07-31 17:35] VITALS: BP 106/1
--- NOTE | 2018-07-31 19:35 | NUR ---
Nurse Notes: Report was given to Christine HEALY, patient was supposed to go to [facility], patient will stay in [facility], no bed is available now. Legs are more swollened, she was sitting on side of bed eating dinner, instructed to keep legs elevated.
--- NOTE | 2018-07-31 19:36 | NUR ---
MS/RN OPENING NOTES PT AWAKE, SITTING UP IN BED. SITTER AT BEDSIDE. ON 2L O2 VIA NC, BREATHING EVEN AND UNLABORED. IV TO LEFT WRIST PATENT AND INTACT. FOR DC TO GPS BUT NO BED AVAILABLE AT THIS TIME. DENIES SOB AND PAIN, IN NO ACUTE DISTRESS. BED IN LOW/LOCKED POSITION WITH CALL LIGHT IN REACH AND BILATERAL UPPER SIDE RAILS IN PLACE. WILL CONTINUE TO MONITOR
[2018-07-31 20:00] VITALS: BP 113/62
[2018-07-31 20:45] VITALS: BP 113/62
[2018-07-31] MEDS: ropiniROLE 0.5 MG TABLET PO SCH (22:44)
[2018-07-31] MEDS: ATORVASTATIN 10 MG TABLET PO SCH (22:45)
[2018-07-31] MEDS: LamoTRIgine 25 MG TABLET PO SCH (22:45)
[2018-08-01] MEDS: ALBUTEROL FS 2.5 MG/0.5 ML VIAL.NEB NEB PRN (05:42)
[2018-08-01] MEDS: IPRATROPIUM NEB FS 0.5 MG/2.5 ML AMPUL.NEB NEB PRN (05:42)
[2018-08-01] MEDS: CEPHALEXIN MONOHYDRATE 250 MG CAPSULE PO SCH (05:51)
[2018-08-01] MEDS: HYDROCODONE/APAP 5/325MG 1 EACH TABLET PO PRN (06:38)
--- NOTE | 2018-08-01 07:43 | NUR ---
MS/RN CLOSING NOTES PT AWAKE, SITTING UP IN BED. SITTER AT BEDSIDE. ON 2L O2 VIA NC, BREATHING EVEN AND UNLABORED. IN NO ACUTE DISTRESS. IV TO LEFT WRIST PATENT AND INTACT. ASSIST TO BSC. NO SIGNIFICANT CHANGES OVERNIGHT. ALL NEEDS MET. BED IN LOW/LOCKED POSITION WITH CALL LIGHT IN REACH AND BILATERAL UPPER SIDE RAILS IN PLACE. ENDORSED TO DAY SHIFT RN ALLYSON.
[2018-08-01] MEDS: NITROGLYCERIN 0.4 MG/TAB BOTTLE SL PRN (07:54)
--- NOTE | 2018-08-01 07:54 | NUR ---
m/s stone planer: notes c/o chest pain, but denies sob, with anxiousness. easily irritated and demanding to have her nitro now. nitroglycerin 0.4mg sl given as ordered. will continue to monitor. sitter at bedside.
[2018-08-01 08:00] VITALS: BP 102/56
[2018-08-01 08:01] LABS: CALCIUM, SERUM 8.8 mg/dL (8.5-10.1); CARBON DIOXIDE 32 mmol/L (21-32); CHLORIDE 103 mmol/L (98-107); CREATININE 1.1 mg/dL (0.6-1.3); GLUCOSE 97 mg/dL (74-106); POTASSIUM 4.2 mmol/L (3.5-5.1); SODIUM SERUM 140 mmol/L (136-145); UREA NITROGEN, BLOOD 20 mg/dL (7-18)
[2018-08-01] MEDS: ASPIRIN EC 81 MG TABLET.DR PO SCH (08:13)
[2018-08-01] MEDS: PREGABALIN 100 MG CAPSULE PO SCH (08:13)
[2018-08-01] MEDS: APIXABAN 5 MG TABLET PO SCH (08:13)
[2018-08-01] MEDS: OLANZAPINE 5 MG TABLET PO SCH (08:13)
[2018-08-01] MEDS: FUROSEMIDE 40 MG TABLET PO SCH (08:13)
[2018-08-01] MEDS: DILTIAZEM HCL CD 120 MG PO SCH (08:14)
--- NOTE | 2018-08-01 08:20 | NUR ---
m/s home child care provider: md visit dr. ulrich here and made aware re: chest pain episode with no new order.
--- NOTE | 2018-08-01 08:30 | NUR ---
m/s automatic brine mixer operator: notes spoke to dr. ulrich and informed me that pt stable for discharge to [facility] and to continue home medication.
[2018-08-01 08:40] VITALS: BP 95/47
[2018-08-01] MEDS: CARVEDILOL 3.125 MG TABLET PO SCH (08:40)
--- NOTE | 2018-08-01 10:00 | NUR ---
m/s oceanographer assistant: notes pt in bed awake, remains easily irritated and gets angry from time to time. reality orientation provided prn. sitter remains at bedside.
--- NOTE | 2018-08-01 11:00 | NUR ---
m/s stock selector: d'c instructions pt unable to sign d'c paper due to cognitive impairment. 2 license staff signed all d'c papers. pt stable for discharge. denies si/hi at this time. sitter remains at bedside. pt to be discharge in [facility].
--- NOTE | 2018-08-01 11:10 | NUR ---
UR Note: VICENTE faxed a clinical to Venus ([phone]), rifle case repairer from [facility], to the fax number: [phone].
--- NOTE | 2018-08-01 11:30 | NUR ---
m/s pcb designer: discharged h/l removed. discharged pt to gps overflow in stable condition with all belongings and d'c papers with hold.
--- NOTE | 2018-08-01 12:30 | NUR ---
m/s safety companion: notes unable to get a hold of sunday (daughter) [phone], line is busyx3
--- NOTE | 2018-08-01 14:30 | NUR ---
m/s deputy chief counsel: discharged discharged to gps room 219-2 in stable condition. report given to micheal (rn) for continuity of care.
[2018-08-01] MEDS ORDERED: ALLA266C2 TP (14:55)
[2018-08-01] MEDS ORDERED: DILT-8 PO (14:55)
[2018-08-01] MEDS ORDERED: ACET-868 PO (14:55)
[2018-08-01] MEDS ORDERED: OLAN5TAB3 PO (14:55)
[2018-08-01] MEDS ORDERED: LAMO25TA10 PO (14:55)
[2018-08-01] MEDS ORDERED: CEPH500C2 PO (15:11)
== END 2018-08-01 11:34 | DRG 603 ==
LOC: MED 23:49
PROVIDERS: ADMIT Legal Medicine; ATTEND Legal Medicine
DX: L03.115 Cellulitis of right lower limb (principal); E44.1 Mild protein-calorie malnutrition; D68.59 Other primary thrombophilia; I50.32 Chronic diastolic (congestive) heart failure; L03.116 Cellulitis of left lower limb; E66.9 Obesity, unspecified; J44.9 Chronic obstructive pulmonary disease, unspecified; I11.0 Hypertensive heart disease with heart failure; R73.03 Prediabetes; E88.09 Other disorders of plasma-protein metabolism, not elsewhere classified; F25.0 Schizoaffective disorder, bipolar type; Z68.29 Body mass index [BMI] 29.0-29.9, adult; Z87.891 Personal history of nicotine dependence; I89.0 Lymphedema, not elsewhere classified
CPT/HCPCS: 36415; 80048-TC; 83735-TC; 84100-TC; 85025-TC; 87081-TC; 93970-TC; G0378; J1650; J3370; J7060

== ENCOUNTER 2018-08-01 12:01 | Inpatient (IN) | payer MEDICARE, OTHER ==
[~2018-08-01] VITALS: Ht 160 cm; Wt 68.0 kg
--- NOTE | 2018-08-01 11:25 | NUR ---
UR Note: VICENTE faxed a clinical to Venus ([phone]), business case analyst from [facility], to the fax number: [phone].
[~2018-08-01 12:01] MED LIST changes: -ACET-868 PO; -ACET325T53 PO; -ALBU2.5V13 NEB; -ALLA266C2 TP; +APIX5TAB PO; +ATOR20TA PO; +CARV3.122 PO; +DILT180C66 PO; -ENOX40DI SQ; +FURO-144 PO; -FURO10VI IV; -HYDR-3972 PO; -IPRA0.2S9 NEB; +NITR0.4T48 SL; -ONDA4VIA23 IVP; +PREG100C PO; +ROPI1TAB2 PO; -methylPREDNISolone SOD SUCC IV
[2018-08-01] MEDS ORDERED: OLAN5TAB3 PO (14:55)
[2018-08-01] MEDS ORDERED: LAMO25TA10 PO (14:55)
[2018-08-01] MEDS ORDERED: DILT-8 PO (14:55)
[2018-08-01] MEDS ORDERED: ALLA266C2 TP (14:55)
[2018-08-01] MEDS ORDERED: ACET-868 PO (14:55)
[2018-08-01] MEDS ORDERED: TEMAZEPAM 7.5 MG CAPSULE PO PRN (15:00)
[2018-08-01] MEDS ORDERED: MAGNESIUM HYDROXIDE 30 ML UDC PO PRN ×2 (15:00→15:30)
[2018-08-01] MEDS ORDERED: MAG HYDROX/AL HYDROX/SIMETH 30 ML UDC PO PRN ×2 (15:00→15:30)
[2018-08-01] MEDS ORDERED: ACETAMINOPHEN 325 MG TABLET PO PRN ×2 (15:00→15:30)
[2018-08-01] MEDS ORDERED: CEPH500C2 PO (15:11)
--- NOTE | 2018-08-01 15:19 | NUR ---
DR. NEWSOME MADE AWARE OF THE ADMISSION ANS SAID TO CONTINUE SAME MEDS SHE TOOK FORM MED- SURG.
[2018-08-01] MEDS ORDERED: Z GUARD REMEDY 2 OZ OINT TP PRN (15:30)
[2018-08-01] MEDS ORDERED: NITROGLYCERIN 0.4 MG/TAB BOTTLE SL PRN (15:30)
[2018-08-01] MEDS ORDERED: MISCELLANEOUS MED 1 EA EA XX ONE (15:30)
--- NOTE | 2018-08-01 15:49 | NUR ---
SW called the pt's daughter, Erin ([phone]), and informed her that the psychiatrist is recommending [facility] as her discharge placement. Pt's daughter stated that she would follow the psychiatrist's recommendation and she will look into the facility. The SW informed her that she will work on the referral and then call the daughter back on Saturday.
[2018-08-01 16:00] VITALS: BP 112/61
--- NOTE | 2018-08-01 16:46 | NUR ---
RN-CO: Admitted a 72 year old female patient from medical floor of [facility]. She is on a 14 day hold for being a gravely disabled adult. Upon face to face assessment, patient is alert and oriented x4, disorganized, disheveled. When asked if she knows the reason why she is being admitted she replied " I am very manic, very happy." Dr Driscoll made aware of her admission and reconciled her medications. Skin assessment was done and found multiple skin discolorations all over her body. Her belongings were screened and patient's rights was discussed and she verbalized understanding. Dr Nixon gave admitting orders.
--- NOTE | 2018-08-01 16:53 | NUR ---
RN-CO: Hank's daughter Crystal made aware of her GPS admission.
[2018-08-01] MEDS: CARVEDILOL 3.125 MG TABLET PO SCH (17:00)
[2018-08-01] MEDS: APIXABAN 5 MG TABLET PO SCH (17:57)
[2018-08-01] MEDS: PREGABALIN 100 MG CAPSULE PO SCH (17:57)
--- NOTE | 2018-08-01 17:59 | NUR ---
RN-CO: Patient was een and examined by Dr Nixon with orders noted and carried out.
--- NOTE | 2018-08-01 19:39 | NUR ---
GPS/RN-NOTES MRSA SWAB DONE AND SEND TO THE LABS. FULL BODY ASSESSMENT DONE.ENDORSE TO INCOMING NURSE FOR CONTINUITY OF CARE.
[2018-08-01 20:00] VITALS: BP 153/61
[2018-08-01] MEDS: CEPHALEXIN MONOHYDRATE 500 MG CAPSULE PO SCH (21:41)
[2018-08-01] MEDS: LamoTRIgine 25 MG TABLET PO SCH (21:41)
[2018-08-01] MEDS: OLANZAPINE 5 MG TABLET PO SCH (21:42)
[2018-08-01] MEDS: ATORVASTATIN 10 MG TABLET PO SCH (21:42)
[2018-08-01] MEDS: ropiniROLE 0.5 MG TABLET PO SCH (21:44)
[2018-08-01] MEDS: HYDROCODONE/APAP 5/325MG 1 EACH TABLET PO PRN (23:18)
[2018-08-02] MEDS: CEPHALEXIN MONOHYDRATE 500 MG CAPSULE PO SCH ×3 (05:36→21:04)
[2018-08-02 07:38] LABS: ALANINE AMINOTRANSFERASE 24 U/L (12-78); ALBUMIN 3.2 g/dL (3.4-5.0); ALKALINE PHOSPHATASE 93 U/L (46-116); ASPARTATE AMINOTRANSFERASE 28 U/L (15-37); BILIRUBIN,TOTAL 0.5 mg/dL (0.2-1.0); CALCIUM, SERUM 9.1 mg/dL (8.5-10.1); CARBON DIOXIDE 30 mmol/L (21-32); CHLORIDE 102 mmol/L (98-107); GLUCOSE 94 mg/dL (74-106); POTASSIUM 4.1 mmol/L (3.5-5.1); SODIUM SERUM 141 mmol/L (136-145); TOTAL PROTEIN, SERUM 7.3 g/dL (6.4-8.2); UREA NITROGEN, BLOOD 21 mg/dL (7-18)
[2018-08-02 08:00] VITALS: BP 121/66
[2018-08-02 08:15] LABS: CHOLESTEROL 130 mg/dL (<200); HDL CHOLESTEROL 72 mg/dL (40-60); LDL 51 mg/dL (0-99); TRIGLYCERIDES 104 mg/dL (30-150)
[2018-08-02] MEDS: OLANZAPINE 5 MG TABLET PO SCH ×2 (08:47→21:03)
[2018-08-02] MEDS: HYDROCODONE/APAP 5/325MG 1 EACH TABLET PO PRN (08:47)
[2018-08-02] MEDS: PREGABALIN 100 MG CAPSULE PO SCH ×2 (08:47→16:23)
--- NOTE | 2018-08-02 08:47 | NUR ---
GPS RN NOTE; PT C/O GENERALIZED PAIN 03/17 NORCO GIVEN WILL CONTINUE MONITORING.
[2018-08-02] MEDS: CARVEDILOL 3.125 MG TABLET PO SCH ×2 (08:48→16:22)
[2018-08-02] MEDS: APIXABAN 5 MG TABLET PO SCH ×2 (08:51→16:24)
[2018-08-02] MEDS: FUROSEMIDE 40 MG TABLET PO SCH (09:06)
[2018-08-02] MEDS: DILTIAZEM HCL CD 120 MG PO SCH (09:06)
[2018-08-02] MEDS: ASPIRIN EC 81 MG TABLET.DR PO SCH (09:06)
[2018-08-02] MEDS: LORAZEPAM 0.5 MG TABLET PO PRN ×2 (11:23→23:32)
--- NOTE | 2018-08-02 11:23 | NUR ---
GPS RN NOTE: PT FEELING ANXIOUS ATIVAN GIVEN PER ORDER WILL CONTINUE MONITORING.
[2018-08-02 16:00] VITALS: BP 131/74
[2018-08-02 20:00] VITALS: BP 108/61
[2018-08-02] MEDS: ropiniROLE 0.5 MG TABLET PO SCH (21:03)
[2018-08-02] MEDS: ATORVASTATIN 10 MG TABLET PO SCH (21:03)
[2018-08-02] MEDS: LamoTRIgine 25 MG TABLET PO SCH (21:04)
[2018-08-02] MEDS: ALBUTEROL FS 2.5 MG/0.5 ML VIAL.NEB NEB PRN (22:49)
[2018-08-02] MEDS: IPRATROPIUM NEB FS 0.5 MG/2.5 ML AMPUL.NEB NEB PRN (22:49)
[2018-08-03] MEDS: CEPHALEXIN MONOHYDRATE 500 MG CAPSULE PO SCH ×3 (04:01→22:05)
[2018-08-03] MEDS: HYDROCODONE/APAP 5/325MG 1 EACH TABLET PO PRN ×2 (05:22→18:23)
[2018-08-03 08:00] VITALS: BP 119/69
[2018-08-03] MEDS: APIXABAN 5 MG TABLET PO SCH ×2 (08:39→16:26)
[2018-08-03] MEDS: DILTIAZEM HCL CD 120 MG PO SCH (08:39)
[2018-08-03] MEDS: ASPIRIN EC 81 MG TABLET.DR PO SCH (08:39)
[2018-08-03] MEDS: OLANZAPINE 5 MG TABLET PO SCH ×2 (08:40→21:08)
[2018-08-03] MEDS: FUROSEMIDE 40 MG TABLET PO SCH (08:40)
[2018-08-03] MEDS: PREGABALIN 100 MG CAPSULE PO SCH ×2 (08:40→16:25)
[2018-08-03] MEDS: CARVEDILOL 3.125 MG TABLET PO SCH ×2 (08:42→16:25)
[2018-08-03] MEDS: ALBUTEROL FS 2.5 MG/0.5 ML VIAL.NEB NEB PRN (11:28)
[2018-08-03] MEDS: IPRATROPIUM NEB FS 0.5 MG/2.5 ML AMPUL.NEB NEB PRN (11:28)
[2018-08-03 16:00] VITALS: BP 105/62
[2018-08-03 20:22] VITALS: BP 111/68
[2018-08-03] MEDS: ropiniROLE 0.5 MG TABLET PO SCH (21:09)
[2018-08-03] MEDS: LamoTRIgine 25 MG TABLET PO SCH (21:09)
[2018-08-03] MEDS: ATORVASTATIN 10 MG TABLET PO SCH (21:09)
[2018-08-03] MEDS ORDERED: CEPHALEXIN MONOHYDRATE 500 MG CAPSULE PO ONE (21:55)
[2018-08-04] MEDS: HYDROCODONE/APAP 5/325MG 1 EACH TABLET PO PRN (01:29)
[2018-08-04] MEDS ORDERED: CEPHALEXIN MONOHYDRATE 500 MG CAPSULE PO ONE (06:01)
[2018-08-04] MEDS: CEPHALEXIN MONOHYDRATE 500 MG CAPSULE PO SCH ×2 (06:03→12:33)
[2018-08-04] MEDS: LORAZEPAM 0.5 MG TABLET PO PRN (06:38)
[2018-08-04 07:26] LABS: BASOPHILS % (AUTO) 0.8 % (0.0-2.0); EOSINOPHILS % (AUTO) 2.7 % (0.0-6.0); HEMATOCRIT 38 % (33-45); HEMOGLOBIN 12.5 g/dL (11.5-14.8); LYMPHOCYTES # (AUTO) 1.3 /CMM (0.8-4.8); LYMPHOCYTES % (AUTO) 23.6 % (20.0-44.0); MEAN CORPUSCULAR HGB CONC 33 g/dl (31.0-36.0); MEAN CORPUSCULAR VOLUME 87 fL (82-100); MONOCYTES # (AUTO) 0.4 /CMM (0.1-1.30); MONOCYTES % (AUTO) 7.2 % (2.0-12.0); NEUTROPHILS # (AUTO) 3.7 /CMM (1.8-8.9); NEUTROPHILS % (AUTO) 65.7 % (43.0-81.0); PLATELET COUNT (AUTO) 142 /CMM (150-450); RED BLOOD CELL COUNT(AUTO) 4.36 MIL/uL (4.0-5.2); WHITE BLOOD COUNT (AUTO) 5.7 K/uL (4.3-11.0)
[2018-08-04 07:31] LABS: CARBON DIOXIDE 34 mmol/L (21-32); CHLORIDE 102 mmol/L (98-107); CREATININE 1.2 mg/dL (0.6-1.3); GLUCOSE 97 mg/dL (74-106); MAGNESIUM 1.9 mg/dL (1.8-2.4); POTASSIUM 3.7 mmol/L (3.5-5.1); SODIUM SERUM 142 mmol/L (136-145); UREA NITROGEN, BLOOD 27 mg/dL (7-18)
[2018-08-04 08:00] VITALS: BP 110/63
[2018-08-04] MEDS: APIXABAN 5 MG TABLET PO SCH (09:00)
--- NOTE | 2018-08-04 09:05 | NUR ---
VICENTE called the pt's daughter, Erin ([phone]), and informed her that there is a probable cause hearing for the pt today within the next hour.
[2018-08-04] MEDS: DILTIAZEM HCL CD 120 MG PO SCH (09:36)
[2018-08-04 09:37] VITALS: BP 110/63
[2018-08-04] MEDS: ASPIRIN EC 81 MG TABLET.DR PO SCH (09:37)
[2018-08-04] MEDS: PREGABALIN 100 MG CAPSULE PO SCH (09:37)
[2018-08-04] MEDS: CARVEDILOL 3.125 MG TABLET PO SCH (09:37)
[2018-08-04] MEDS: OLANZAPINE 5 MG TABLET PO SCH (09:37)
[2018-08-04] MEDS: FUROSEMIDE 40 MG TABLET PO SCH (09:37)
--- NOTE | 2018-08-04 10:06 | NUR ---
SW attended the Probable Cause hearing and the pt appeared to be alert and oriented. Pt has seemed to improved since she was admitted to the hospital. The sales representative business courses stated that the pt does not need to be psychiatrically hospitalized and will be discharged today.
--- NOTE | 2018-08-04 10:07 | NUR ---
VICENTE called the pt's daughter, Erin ([phone]), and informed her that the pt's hold was not upheld in the hearing and that the pt will be discharged today. She stated that she saw the pt yesterday and agrees that the pt does not need to be hospitalized at this time. The SW planned the discharge with the pt's daughter who stated that she can come order picker/assembler the pt around 12pm.
--- NOTE | 2018-08-04 10:20 | NUR ---
Psychosocial Note: I, Shalonda Cruz MSW, attest to the patients previous psychosocial information dated on 07/29/18. Update On Events leading to Admission and Discharge Plan: Pt has returned to the geropsychiatric unit of the hospital within one week of her previous discharge date (08/01/18) from the unit to the medical floor. Per hold, the pt came from her current living situation where her roommate stated that the pt was acting really childlike, highly manic and delusional. The current plan is to adjust the pts medications and stabilize her before discharging the pt back to her independent living situation. Per pt, she stated that she would like to be discharged back to her facility. The pt appeared to be in a dysphoric mood and presented as irritable and agitated. Pt appeared to be ambulatory with the assistance of a walker, well-groomed and appropriately dressed. SW will work with the pt, the pts family and the MD regarding appropriate discharge planning. SW will form a safe and proper discharge.
--- NOTE | 2018-08-04 12:30 | NUR ---
MARBLE WORKER NOTE :PATIENT REFUSED DISCHARGE PHOTOS .
--- NOTE | 2018-08-04 12:45 | NUR ---
AUTO SUSPENSION AND STEERING MECHANIC NOTE :PATIENT ALERT ,VERBALLY RESPONSIVE ,DENIES SI/HI/AVH ,VS STABLE ,NO C/O PAIN, PATIENT DISCHARGE BY COURT ,SEEN BY WITH DISCHARGE ORDERS , CALLED BACK WITH DISCHARGE ORDERS .ALL BELONGINGS RETURNED TO PATIENT, ALL PRESCRIPTION GIVEN AND EXPLAINED TO PATIENT AND DAUGHTER ABLE TO VERBALIZE UNDERSTANDING .PATIENT DISCHARGED WITH DAUGHTER .
--- NOTE | 2018-08-04 12:51 | NUR ---
VICENTE faxed the pt's discharge packet to her psychiatrist, Dr. Juarez Cooper ([phone]) to the fax number: [phone].
--- NOTE | 2018-08-04 14:29 | NUR ---
Discharge Note: Pt was discharged to [facility] located at [address] [place] [id number]; ([phone]). Pts daughter, Erin ([phone]), picked up the pt at 12PM. Upon discharge, the pt appeared to be in a euthymic mood and presented with a calm affect. Pt denied both suicidal and homicidal ideation as well as auditory and visual hallucinations. Pt will continue to be under the care of her psychiatrist, Dr. Juarez Cooper, located at [address] [place] [address]; and her alfalfa dehydrator operator, Dr. Kd Peterson, [place] [address] [place] [address]; .
--- NOTE | 2018-08-04 14:32 | NUR ---
UR Note: VICENTE faxed a clinical to Venus ([phone]), correctional counselor/case manager from [facility], to the fax number: [phone].
== END 2018-08-04 12:45 | DRG 885 ==
LOC: GPSOV 12:01 → GPS 14:18
PROVIDERS: ADMIT Psychiatry & Neurology Psychiatry; ATTEND Psychiatry & Neurology Psychiatry
DX: F31.2 Bipolar disorder, current episode manic severe with psychotic features (principal); I11.0 Hypertensive heart disease with heart failure; I50.22 Chronic systolic (congestive) heart failure; L03.116 Cellulitis of left lower limb; L03.115 Cellulitis of right lower limb; J44.9 Chronic obstructive pulmonary disease, unspecified; I89.0 Lymphedema, not elsewhere classified
CPT/HCPCS: 36415; 80048-TC; 80053-TC; 80061-TC; 83735-TC; 85025-TC; 87081-TC

== ENCOUNTER 2018-08-15 10:38 | Emergency (ER) | payer MEDICARE, OTHER ==
[~2018-08-15] VITALS: Ht 162.6 cm; Wt 80.7 kg
[~2018-08-15 10:38] MED LIST changes: +ACET-868 PO; +ALLA266C2 TP; +CEPH500C2 PO; +DILT-8 PO; -DILT180C66 PO; -METO25TA20 PO; -ZOLP5TAB2 PO
--- NOTE | 2018-08-15 10:38 | NUR ---
PT BIB RA 81 FROM HOME,BILATERAL LEG SWELLING/REDNESS, PT IS AAOX4, NOT IN RESPIRATORY DISTRESS, V/S STABLE, KEPT RESTED AND COMFORTABLE.
[2018-08-15] MEDS ORDERED: VANCOMYCIN 1 GM in IV D5W 250 ML IV ONE (11:00)
[2018-08-15] MEDS ORDERED: PIPERACILLIN /TAZOBACTAM 3.375 G in IV D5W 50 ML IV ONE (11:00)
--- NOTE | 2018-08-15 11:00 | NUR ---
SEEN AND EXAMINED BY DR. GUILLEN.
--- NOTE | 2018-08-15 11:10 | NUR ---
LABS DRAWNED AND SENT TO LAB.
[2018-08-15 11:15] LABS: BASOPHILS % (AUTO) 0.6 % (0.0-2.0); HEMATOCRIT 36 % (33-45); HEMOGLOBIN 11.8 g/dL (11.5-14.8); LYMPHOCYTES # (AUTO) 0.8 /CMM (0.8-4.8); LYMPHOCYTES % (AUTO) 11.8 % (20.0-44.0); MEAN CORPUSCULAR HGB CONC 33 g/dl (31.0-36.0); MEAN CORPUSCULAR VOLUME 89 fL (82-100); MONOCYTES # (AUTO) 0.4 /CMM (0.1-1.30); MONOCYTES % (AUTO) 5.9 % (2.0-12.0); NEUTROPHILS # (AUTO) 5.5 /CMM (1.8-8.9); NEUTROPHILS % (AUTO) 80.7 % (43.0-81.0); PLATELET COUNT (AUTO) 200 /CMM (150-450); RED BLOOD CELL COUNT(AUTO) 4.07 MIL/uL (4.0-5.2); WHITE BLOOD COUNT (AUTO) 6.8 K/uL (4.3-11.0)
[2018-08-15 11:41] LABS: CALCIUM, SERUM 9.1 mg/dL (8.5-10.1); CARBON DIOXIDE 30 mmol/L (21-32); CHLORIDE 103 mmol/L (98-107); CREATININE 1.2 mg/dL (0.6-1.3); GLUCOSE 110 mg/dL (74-106); POTASSIUM 3.1 mmol/L (3.5-5.1); SODIUM SERUM 140 mmol/L (136-145); UREA NITROGEN, BLOOD 21 mg/dL (7-18)
[2018-08-15 11:47] LABS: ALANINE AMINOTRANSFERASE 17 U/L (12-78); ALKALINE PHOSPHATASE 103 U/L (46-116); ASPARTATE AMINOTRANSFERASE 22 U/L (15-37); BILIRUBIN,DIRECT 0.1 mg/dL (0.0-0.2); BILIRUBIN,TOTAL 0.3 mg/dL (0.2-1.0); TOTAL PROTEIN, SERUM 7.5 g/dL (6.4-8.2)
[2018-08-15] MEDS ORDERED: POTASSIUM CHLORIDE 20 MEQ TAB.PRT.SR PO ONE ×2 (12:29→12:30)
[2018-08-15] MEDS ORDERED: HYDROMORPHONE INJ 0.5 MG/0.5 ML SYRINGE ONE ×2 (12:29→13:59)
[2018-08-15] MEDS ORDERED: ONDANSETRON HCL/PF 4 MG/2 ML VIAL ONE (12:29)
[2018-08-15] MEDS ORDERED: ONDANSETRON HCL/PF 4 MG/2 ML VIAL IVP ONE (12:30)
[2018-08-15] MEDS ORDERED: HYDROMORPHONE INJ 2 MG/ML DISP.SYRIN IV ONE (12:30)
--- NOTE | 2018-08-15 12:48 | NUR ---
PT [facility] [id number] NUMBER FOR REPORT [id number] ACCEPTING MD LAWS
--- NOTE | 2018-08-15 12:54 | NUR ---
[facility]
--- NOTE | 2018-08-15 13:45 | NUR ---
REPORT GIVEN TO NIRAJ MEDINA FOR ALLYSON.
--- NOTE | 2018-08-15 14:06 | NUR ---
REPORT GIVEN TO EMT FOR TRANSFER TO [place].
[2018-08-15 14:07] VITALS: BP 126/60
[2018-08-15] MEDS ORDERED: HYDROMORPHONE 1 MG/1 ML DISP.SYRIN IV ONE (14:30)
== END 2018-08-15 14:10 | disposition short-term general hospital (02) ==
LOC: ER 10:39
DX: L03.115 Cellulitis of right lower limb (principal); I10 Essential (primary) hypertension; Z98.890 Other specified postprocedural states; Z95.1 Presence of aortocoronary bypass graft; Z88.8 Allergy status to other drugs, medicaments and biological substances; Z60.2 Problems related to living alone; Z79.82 Long term (current) use of aspirin
CPT/HCPCS: 36415; 71045; 80048; 80076; 83605; 84484; 85025; 85730; 87040 ×2; 93005; 96365; 96367; 96375; 96376; 99285; A4606; A6403; J2405; J2543; J3370; J7060 ×2

== ENCOUNTER 2018-10-30 16:08 | Emergency (ER) | payer MEDICARE, OTHER ==
[~2018-10-30] VITALS: Ht 152.4 cm; Wt 63.5 kg
--- NOTE | 2018-10-30 16:35 | NUR ---
PATIENT BIBA RA 889 "From Assisted Living Right Leg pain x1wk or so". AWAKE, ALERT AND ORIENTED X 4, VERBALLY RESPONSIVE AND RESPONDS TO VERBAL AND TACTILE STIMULI. O2 SAT 89%. PLACED ON O2 AT 3L/MIN VIA NC. RIGHT KNEE IMMOBILIZER IN PLACE. PATIENT VERBALIZED THAT SHE HAD 14 SURGERIES ON HER RIHT KNEE AND HAS BEEN USING IT FOR A LONG TIME
[2018-10-30] MEDS ORDERED: MORPHINE SULFATE INJ 2 MG/ML DISP.SYRIN IV ONE (17:00)
[2018-10-30] MEDS ORDERED: ONDANSETRON HCL/PF 4 MG/2 ML VIAL IVP ONE (17:00)
[2018-10-30 17:22] LABS: BASOPHILS # (AUTO) 0.1 /CMM (0.0-0.2); BASOPHILS % (AUTO) 0.6 % (0.0-2.0); EOSINOPHILS % (AUTO) 0.9 % (0.0-6.0); HEMATOCRIT 31 % (33-45); LYMPHOCYTES # (AUTO) 1.6 /CMM (0.8-4.8); LYMPHOCYTES % (AUTO) 16.5 % (20.0-44.0); MEAN CORPUSCULAR HGB CONC 32 g/dl (31.0-36.0); MEAN CORPUSCULAR VOLUME 89 fL (82-100); MONOCYTES # (AUTO) 0.6 /CMM (0.1-1.30); NEUTROPHILS # (AUTO) 7.3 /CMM (1.8-8.9); PLATELET COUNT (AUTO) 184 /CMM (150-450); RED BLOOD CELL COUNT(AUTO) 3.47 MIL/uL (4.0-5.2); WHITE BLOOD COUNT (AUTO) 9.5 K/uL (4.3-11.0)
[2018-10-30 17:32] LABS: CALCIUM, SERUM 8.5 mg/dL (8.5-10.1); CARBON DIOXIDE 37 mmol/L (21-32); CHLORIDE 105 mmol/L (98-107); CREATININE 1.2 mg/dL (0.6-1.3); GLUCOSE 98 mg/dL (74-106); POTASSIUM 3.9 mmol/L (3.5-5.1); SODIUM SERUM 146 mmol/L (136-145); UREA NITROGEN, BLOOD 27 mg/dL (7-18)
[2018-10-30 17:38] LABS: ALANINE AMINOTRANSFERASE 13 U/L (12-78); ALKALINE PHOSPHATASE 110 U/L (46-116); ASPARTATE AMINOTRANSFERASE 15 U/L (15-37); BILIRUBIN,DIRECT 0.1 mg/dL (0.0-0.2); BILIRUBIN,TOTAL 0.2 mg/dL (0.2-1.0); TOTAL PROTEIN, SERUM 7.2 g/dL (6.4-8.2)
[2018-10-30] MEDS ORDERED: MORPHINE SULFATE INJ 4 MG/ML DISP.SYRIN ONE (17:50)
[2018-10-30] MEDS ORDERED: ONDANSETRON HCL/PF 4 MG/2 ML VIAL ONE (17:50)
--- NOTE | 2018-10-30 18:38 | NUR ---
O2 SAT 97% IN 3L/MIN VIA NC. O2 TITRATED TO 2L/MIN. WILL CONTINUE TO MONITOR
--- NOTE | 2018-10-30 19:06 | NUR ---
PER PATIENT, SHE RESIDES AT [facility] ADDRESS: [facility] CHUYITA SAWANT TEL NO. [phone]
--- NOTE | 2018-10-30 19:10 | NUR ---
CALLED [facility] FOR TRANSPORT ETA OF 2044 WAS GIVEN. TRIP#[phone]
--- NOTE | 2018-10-30 19:11 | NUR ---
PLACED CALL TO [facility] ([phone]) AND SPOKE WITH ASHLEY POWERPLANT OPERATOR. MADE AWARE OF PATIENT DISCHARGE. PATIENT ON THE PHONE WITH SID, DAUGHTER AND AWARE OF PATIENT CONDITION
--- NOTE | 2018-10-30 21:42 | NUR ---
CALLED [facility] TO FIND OUT UPDATED ETA. ETA [phone]
--- NOTE | 2018-10-30 22:17 | NUR ---
PT LEFT VIA PRIVATE AMBULANCE, PT LEFT VIA GURNEY, LEFT IN STABLE CONDITION, ALL DC PAPERWORKS SIGNED, REPORT GIVEN TO [facility] AWARE OF PT'S RETURN. REPORT GIVEN TO AMBULANCE STAFF.
[2018-10-30 22:18] VITALS: BP 119/65
[2018-11-14] MEDS ORDERED: ROPI1TAB2 PO (13:17)
[2018-11-14] MEDS ORDERED: DILT-8 PO (13:17)
[2018-11-14] MEDS ORDERED: CARV3.122 PO (13:17)
[2018-11-14] MEDS ORDERED: FURO-144 PO (13:17)
[2018-11-14] MEDS ORDERED: ATOR20TA PO (13:17)
[2018-11-14] MEDS ORDERED: ASPI-1152 PO (13:17)
== END 2018-10-30 22:19 ==
LOC: ER 16:10
DX: R60.0 Localized edema (principal); I10 Essential (primary) hypertension; I45.10 Unspecified right bundle-branch block; I48.91 Unspecified atrial fibrillation; Z98.890 Other specified postprocedural states; Z95.1 Presence of aortocoronary bypass graft; Z79.82 Long term (current) use of aspirin; Z88.8 Allergy status to other drugs, medicaments and biological substances
CPT/HCPCS: 36415; 71045; 80048; 80076; 83605; 84484; 85025; 85730; 87040 ×2; 93005; 96374; 96375; 99284; J2270; J2405

== ENCOUNTER 2018-11-13 12:50 | Inpatient (IN) | payer MEDICARE ==
[2018-11-13] VITALS (21 sets, daily range): BP systolic 78–124; BP diastolic 41–89
[~2018-11-13] VITALS: Ht 152.4 cm; Wt 75.3 kg
--- NOTE | 2018-11-13 12:50 | NUR ---
BIB RA 102 FROM CARE FACILITY,WORSENING SHORTNESS OF BREATH, CPAP AND ALBUTEROL INHALATION ENROUTE, TO ER BED 8, HOOKED TO MONITOR, CHANGED TO GOWN, PROVIDED W WARM BLANKET, AWAITING MD LUTZ.
--- NOTE | 2018-11-13 12:52 | NUR ---
RT AT BEDSIDE.
[2018-11-13 13:14] LABS: BASOPHILS % (AUTO) 0.5 % (0.0-2.0); EOSINOPHILS % (AUTO) 0.6 % (0.0-6.0); HEMATOCRIT 38 % (33-45); HEMOGLOBIN 12.1 g/dL (11.5-14.8); LYMPHOCYTES # (AUTO) 1.3 /CMM (0.8-4.8); LYMPHOCYTES % (AUTO) 15.8 % (20.0-44.0); MEAN CORPUSCULAR HGB CONC 32 g/dl (31.0-36.0); MEAN CORPUSCULAR VOLUME 87 fL (82-100); MONOCYTES # (AUTO) 0.5 /CMM (0.1-1.30); MONOCYTES % (AUTO) 6.4 % (2.0-12.0); NEUTROPHILS # (AUTO) 6.2 /CMM (1.8-8.9); NEUTROPHILS % (AUTO) 76.7 % (43.0-81.0); PLATELET COUNT (AUTO) 295 /CMM (150-450); RED BLOOD CELL COUNT(AUTO) 4.36 MIL/uL (4.0-5.2); WHITE BLOOD COUNT (AUTO) 8.1 K/uL (4.3-11.0)
[2018-11-13 13:23] LABS: CALCIUM, SERUM 8.7 mg/dL (8.5-10.1); CARBON DIOXIDE 37 mmol/L (21-32); CHLORIDE 99 mmol/L (98-107); CREATININE 1.9 mg/dL (0.6-1.3); GLUCOSE 121 mg/dL (74-106); POTASSIUM 5.7 mmol/L (3.5-5.1); SODIUM SERUM 139 mmol/L (136-145); UREA NITROGEN, BLOOD 63 mg/dL (7-18)
--- NOTE | 2018-11-13 13:28 | NUR ---
ICU BED 253
--- NOTE | 2018-11-13 13:29 | NUR ---
ONE HOUR ETA FOR MID-LINE NURSE ROEL)
[2018-11-13 13:39] LABS: ALANINE AMINOTRANSFERASE 14 U/L (12-78); ALBUMIN 3.3 g/dL (3.4-5.0); ALKALINE PHOSPHATASE 104 U/L (46-116); ASPARTATE AMINOTRANSFERASE 35 U/L (15-37); B-TYPE NATRIURETIC PEPTIDE 13016 PG/ML (0-125); BILIRUBIN,TOTAL 0.4 mg/dL (0.2-1.0); TOTAL PROTEIN, SERUM 8.5 g/dL (6.4-8.2)
[2018-11-13] MEDS ORDERED: WARF5TAB77 PO (13:46)
[2018-11-13] MEDS ORDERED: GABA-532 PO (13:46)
[2018-11-13] MEDS ORDERED: RISP1TAB27 PO (13:46)
[2018-11-13] MEDS ORDERED: LAMO150T PO (13:46)
[2018-11-13] MEDS ORDERED: ONDA4TAB5 PO (13:46)
[2018-11-13] MEDS ORDERED: ZIPR40CA2 PO (13:46)
[2018-11-13] MEDS ORDERED: NITROGLYCERIN 0.4 MG/TAB BOTTLE SL ONE (14:00)
[2018-11-13] MEDS ORDERED: SODIUM BICARBONATE SYR 50 MEQ/50 ML DISP.SYRIN IV ONE (14:00)
[2018-11-13] MEDS ORDERED: FUROSEMIDE 40 MG/4 ML VIAL IV ONE (14:00)
[2018-11-13] MEDS ORDERED: SODIUM POLYSTYRENE SULFONATE 15 G/60 ML BOTTLE PO ONE (14:00)
[2018-11-13] MEDS ORDERED: ENALAPRILAT INJ (1.25 MG/ML) 1.25 MG/ML VIAL IV PRN (14:00)
[2018-11-13] MEDS ORDERED: ALBUTEROL FS 2.5 MG/3 ML VIAL.NEB NEB ONE (14:00)
[2018-11-13] MEDS ORDERED: ENALAPRILAT INJ (1.25 MG/ML) 1.25 MG/ML VIAL IV ONE (14:01)
[2018-11-13] MEDS ORDERED: SODIUM BICARBONATE SYR 50 MEQ/50 ML DISP.SYRIN ONE (14:01)
[2018-11-13] MEDS ORDERED: NITROGLYCERIN 0.4 MG/TAB BOTTLE ONE (14:01)
[2018-11-13] MEDS ORDERED: SODIUM POLYSTYRENE SULFONATE 15 G/60 ML BOTTLE ONE (14:01)
[2018-11-13] MEDS ORDERED: FUROSEMIDE 40 MG/4 ML VIAL ONE (14:01)
--- NOTE | 2018-11-13 14:11 | NUR ---
ONGOING MID LINE INSERTION
[2018-11-13] MEDS ORDERED: MAGNESIUM HYDROXIDE 30 ML UDC PO PRN (15:00)
[2018-11-13] MEDS ORDERED: Z GUARD REMEDY 2 OZ OINT TP PRN (15:00)
[2018-11-13] MEDS ORDERED: ZOLPIDEM TARTRATE 5 MG TABLET PO PRN (15:00)
[2018-11-13] MEDS ORDERED: IV NS 0.9% 500 ML BAG IV ONE (15:00)
[2018-11-13] MEDS ORDERED: HYDROCODONE/APAP 5/325MG 1 EACH TABLET PO PRN (15:00)
[2018-11-13] MEDS ORDERED: ACETAMINOPHEN 325 MG TABLET PO PRN (15:00)
--- NOTE | 2018-11-13 15:09 | NUR ---
REPORT GIVEN TO BENY HEALY OF ICU
[2018-11-13] MEDS ORDERED: BUMETANIDE INJ 1 MG in IV NS 0.9% 40 ML IV ONE (16:00)
--- NOTE | 2018-11-13 16:01 | NUR ---
RT NOTE: RT WAS NOT NOTIFIED OF ALBUTEROL TREATMENT IN ER. PATIENT WAS TRANSPORTED TO ICU. ENDORSED ORDERS TO RT FOLLOWING PATIENT IN ICU. PESTICIDE CHEMIST (ALDO Rodriguez) NOTIFIED.
--- NOTE | 2018-11-13 16:31 | NUR ---
received pt from ER, s/p acute respiratory failure s/t COPD exacerbation and CHF, alert, follows commands, SR, PACs, on bipap, at 40% fio2, sat well, lungs congested, no edema, v/s stable, no pain, pt cleaned, changed and repositioned.
[2018-11-13] MEDS: methylPREDNISolone SOD SUCC 125 MG/2ML VIAL IV SCH (16:45)
[2018-11-13] MEDS: ALBUTEROL HALF STRENGTH 1.25 MG/3 ML VIAL.NEB NEB SCH ×2 (16:46→19:42)
[2018-11-13] MEDS: IPRATROPIUM NEB FS 0.5 MG/2.5 ML AMPUL.NEB NEB SCH ×2 (16:46→19:42)
[2018-11-13 18:38] LABS: APPEARANCE,URINE CLEAR (CLEAR); BILIRUBIN,URINE NEGATIVE (NEGATIVE); BLOOD, URINE TRACE-INTA Ery/uL (NEGATIVE); COLOR,URINE YELLOW (YELLOW); KETONES,URINE NEGATIVE (NEGATIVE); LEUKOCYTE ESTERASE ,URINE TRACE (NEGATIVE); NITRITE, URINE NEGATIVE (NEGATIVE); PH,URINE 6.5 (5.0-8.0); PROTEIN,URINE NEGATIVE (NEGATIVE); UGLUCOSE NEGATIVE (NEGATIVE); UROBILINOGEN,URINE 0.2 EU/dL (0.2)
--- NOTE | 2018-11-13 19:42 | NUR ---
RCVD PT ON 6L NC, PLACED BACK ON BIPAP 18/5 ,RATE 14,40% PER MD'S ORDER. NIRAJ PRESTON NOTIFIED. PT IS AWAKE AND ALERT. BIPAP PLUGGED INTO RED OUTLET, ALARMS ON AND AUDIBLE. BREATHING TX GIVEN , NO ADVERSE REACTION NOTED. WILL CONTINUE TO MONITOR THE PT.
[2018-11-13 19:53] LABS: BACTERIA,URINE None seen /HPF (None Seen); SQUAMOUS EPITHELIAL CELL,UR Few /HPF (None Seen)
--- NOTE | 2018-11-13 20:00 | NUR ---
Rn initial notes Received pt in bed. Pt A&OX3-4. SR on tele monitor HR 84. On bipap, at 40% fio2, sat well. Simeon in place draining to gravity. L UA midline S/L. No pain. Bed in low locked position. Call light with in reach. Will cont to monitor.
[2018-11-14] VITALS (33 sets, daily range): BP systolic 70–125; BP diastolic 34–65
[2018-11-14] MEDS: IPRATROPIUM NEB FS 0.5 MG/2.5 ML AMPUL.NEB NEB SCH ×4 (01:39→19:28)
[2018-11-14] MEDS: ALBUTEROL HALF STRENGTH 1.25 MG/3 ML VIAL.NEB NEB SCH ×4 (01:39→19:28)
--- NOTE | 2018-11-14 04:00 | NUR ---
RN NOTES PT REFUSED BATH, CHARGE NURSE KELLY NOTIFIED.
[2018-11-14 04:54] LABS: HEMATOCRIT 30 % (33-45); HEMOGLOBIN 9.6 g/dL (11.5-14.8); LYMPHOCYTES # (AUTO) 0.4 /CMM (0.8-4.8); LYMPHOCYTES % (AUTO) 7.3 % (20.0-44.0); MEAN CORPUSCULAR HGB CONC 33 g/dl (31.0-36.0); MEAN CORPUSCULAR VOLUME 87 fL (82-100); MONOCYTES % (AUTO) 0.7 % (2.0-12.0); NEUTROPHILS # (AUTO) 5.7 /CMM (1.8-8.9); PLATELET COUNT (AUTO) 239 /CMM (150-450); WHITE BLOOD COUNT (AUTO) 6.1 K/uL (4.3-11.0)
[2018-11-14 05:05] LABS: CALCIUM, SERUM 8.1 mg/dL (8.5-10.1); CHLORIDE 102 mmol/L (98-107); CREATININE 1.6 mg/dL (0.6-1.3); GLUCOSE 129 mg/dL (74-106); MAGNESIUM 1.8 mg/dL (1.8-2.4); POTASSIUM 3.7 mmol/L (3.5-5.1); SODIUM SERUM 146 mmol/L (136-145); UREA NITROGEN, BLOOD 56 mg/dL (7-18)
[2018-11-14 05:21] LABS: CHOLESTEROL 100 mg/dL (<200); HDL CHOLESTEROL 51 mg/dL (40-60); LDL 45 mg/dL (0-99); TRIGLYCERIDES 53 mg/dL (30-150)
[2018-11-14 05:22] LABS: CARBON DIOXIDE 42 mmol/L (21-32)
--- NOTE | 2018-11-14 06:26 | NUR ---
RN CLOSING NOTES PT REMAINED STABLE OVERNIGHT, NO SIGNIFICANT CHANGE IN PTS CONDITION. PT WORE BIPAP OVER NIGHT ORDERED. ALL NEEDS ANTICIPATED AND MET.
[2018-11-14] MEDS ORDERED: PANTOPRAZOLE 40 MG TABLET.DR PO SCH (07:30)
[2018-11-14] MEDS: methylPREDNISolone SOD SUCC 125 MG/2ML VIAL IV SCH ×2 (08:28→16:17)
[2018-11-14 10:09] LABS: THYROID STIMULATING HORMONE 0.547 uIU/mL (0.358-3.74)
--- NOTE | 2018-11-14 10:40 | NUR ---
RN NOTE PT SUSTAINED LOW BP, 89/40MMHG, 81/45MMHG, PT CO FEELING DIZZY, DNP NADIRA NOTIFIED, RECEIVED AN ORDER FOR 500 ML NS BOLUS. WILL ORDER AND ADMINISTER. WILL MONITOR PT CLOSELY.
[2018-11-14] MEDS ORDERED: IV NS 0.9% 500 ML BAG IV ONE (11:00)
[2018-11-14 11:16] LABS: ABG BASE EXCESS 14.2 mmol/L; ABG OXYGEN SATURATION 96.2 % (92.0-98.5); ABG PCO2 57.4 mmHg (35.0-45.0); ABG PH 7.461 (7.350-7.450); ABG PO2 89.9 mmHg (75.0-100.0); AaDO2 100.2 mmHg; COHb 0.2 % (0.5-1.5); MetHb 0.9 % (0.0-1.5); O2Hb 95.1 % (94.0-97.0); SITE, ABG Right Radial; VENT MODE, BG Nasal Cannula
--- NOTE | 2018-11-14 11:30 | NUR ---
RN NOTE ABG DONE AND RESULT RELAYED TO DR HELLER, NO NEW ORDERS AT THIS TIME. PT ON NC 4.0 L/MIN, TOLERATES WELL, NO SOB. O2 SAT 95-98%.
[2018-11-14 11:47] LABS: APPEARANCE,URINE SL CLOUDY (CLEAR); BILIRUBIN,URINE NEGATIVE (NEGATIVE); BLOOD, URINE TRACE-INTA Ery/uL (NEGATIVE); COLOR,URINE YELLOW (YELLOW); KETONES,URINE NEGATIVE (NEGATIVE); LEUKOCYTE ESTERASE ,URINE TRACE (NEGATIVE); NITRITE, URINE NEGATIVE (NEGATIVE); PROTEIN,URINE NEGATIVE (NEGATIVE); UGLUCOSE NEGATIVE (NEGATIVE); UROBILINOGEN,URINE 0.2 EU/dL (0.2)
[2018-11-14 11:50] LABS: URINE TOTAL PROTEIN 12.2 mg/dL (0-11.9)
[2018-11-14 11:59] LABS: BACTERIA,URINE 2+ /HPF (None Seen); MUCUS,URINE Few /LPF (None Seen); URINE AMORPHOUS URATE Few /HPF (None Seen)
--- NOTE | 2018-11-14 12:01 | NUR ---
RN NOTE PT SPOKE WITH DR LÓPEZ REGARDING PT HAVING A-FLUTTER 90-107, HIGHEST HR 126, PER DR LÓPEZ TO ORDER AMIODARONE 400 MG PO TID. WILL DINO OUT AND MONITOR PT CLOSELY.
--- NOTE | 2018-11-14 12:14 | NUR ---
RN NOTE URINE CX CAME POSITIVE FOR GRAM NEG RODS, ORDERED KEFLEX, 250 MG, TID. WILL CARRY OUT.
[2018-11-14 12:24] LABS: EOSINOPHIL,URINE None Seen
[2018-11-14] MEDS ORDERED: CEPHALEXIN MONOHYDRATE 250 MG CAPSULE PO SCH (13:00)
[2018-11-14] MEDS ORDERED: FURO-144 PO (13:17)
[2018-11-14] MEDS ORDERED: ASPI-1152 PO (13:17)
[2018-11-14] MEDS ORDERED: ROPI1TAB2 PO (13:17)
[2018-11-14] MEDS ORDERED: ATOR20TA PO (13:17)
[2018-11-14] MEDS ORDERED: DILT-8 PO (13:17)
[2018-11-14] MEDS ORDERED: CARV3.122 PO (13:17)
[2018-11-14] MEDS: AMIODARONE HCL 200 MG TABLET PO SCH ×2 (13:33→16:18)
--- NOTE | 2018-11-14 15:35 | NUR ---
RT RECEIVED PT ON BIPAP REMOVED AT 820 PLACED ON 3L NC ADA WELL, ABG DONE AFTER 2HRS PLACE BIPAP BACK AT NOC
[2018-11-14] MEDS ORDERED: APIXABAN 5 MG TABLET PO SCH (17:30)
--- NOTE | 2018-11-14 19:00 | NUR ---
RN NOTE PT REMAINED STABLE, HR REMAINED AT SR WITH PACs, 70-80S PO INTAKE TOLERATED WELL. NEED MET ,MED GIVEN PRESCRIBED, SAFETY MEASURES IN PLACE. AWAITING TRANSFER TO [place], WILL ENDORSE TO COILED TUBING OPERATOR NURSE.
--- NOTE | 2018-11-14 20:45 | NUR ---
SECURITY TECHNICIAN: ROBBY FROM [facility] CALLED AND GAVE INSTRUCTIONS TO GIVE REPORT TO NIRAJ FOFANA FROM [facility] ROOM 2351 AND [facility] WILL VISUAL DISPLAY MANAGER PT.
[2018-11-14] MEDS ORDERED: SULFAMETH/TRIMETH 800/160 MG 1 UDTAB TABLET PO SCH (21:00)
--- NOTE | 2018-11-14 21:15 | NUR ---
SENSOR SPECIALIST: REPORT GIVEN TO NIRAJ FOFANA OF [facility].
--- NOTE | 2018-11-14 21:40 | NUR ---
GRAIN BLENDER: PICKED UP BY [facility], BELONGINGS SENT WT PT. ALL DUE MEDS GIVEN ORDERED. NO SIGNIFICANT ALLYSON. PT REMAINED A/O X3. ON 3 02 VIA KS WT NO ACUTE DISTRESS. NO C/O PAIN OR EVIDENCE OF DISCOMFORT. DISCHARGE/EXIT CARE RENDERED AND VERBALIZED UNDERSTANDING. ALL NEEDS MET.
[2018-11-14] MEDS ORDERED: ZIPRASIDONE 20 MG CAPSULE PO SCH (22:00)
== END 2018-11-14 21:40 | disposition short-term general hospital (02) | DRG 291 ==
LOC: ER 12:51 → ICU 14:28
PROVIDERS: ADMIT Nurse Practitioner Acute Care; ATTEND Nurse Practitioner Acute Care
PROC: 5A09457 Assistance with Respiratory Ventilation, 24-96 Consecutive Hours, Continuous Positive Airway Pressure (ICD-10-PCS; principal; 2018-11-13)
PROC: 05H633Z Insertion of Infusion Device into Left Subclavian Vein, Percutaneous Approach (ICD-10-PCS; 2018-11-13)
DX: I11.0 Hypertensive heart disease with heart failure (principal); J96.01 Acute respiratory failure with hypoxia; J96.02 Acute respiratory failure with hypercapnia; N17.0 Acute kidney failure with tubular necrosis; J44.1 Chronic obstructive pulmonary disease with (acute) exacerbation; N39.0 Urinary tract infection, site not specified; E78.5 Hyperlipidemia, unspecified; Z79.01 Long term (current) use of anticoagulants; I50.33 Acute on chronic diastolic (congestive) heart failure; I25.10 Atherosclerotic heart disease of native coronary artery without angina pectoris; Z87.891 Personal history of nicotine dependence; Z95.1 Presence of aortocoronary bypass graft; E87.5 Hyperkalemia; E88.09 Other disorders of plasma-protein metabolism, not elsewhere classified; D64.9 Anemia, unspecified; F31.9 Bipolar disorder, unspecified; Z96.659 Presence of unspecified artificial knee joint
CPT/HCPCS: 36415; 36600; 71045-TC; 80048-TC; 80061-TC; 80076-TC; 81000-TC; 82570-TC; 82728-TC; 82803-TC; 83540-TC; 83605-TC; 83735-TC; 83880; 84100-TC; 84155-TC; 84300-TC; 84439-TC; 84443-TC; 84484-TC; 85025-TC; 87040-TC; 87081-TC; 87086-TC; 87186-TC; 94660; 97530-TC; A4216; A4217; G0378; J1940; J2930; J3490; J7040